=== PATIENT | male | born 1950 | race Caucasian/White ===

== ENCOUNTER → 2020-10-18 08:02 | Outpatient (CLI) | payer MEDICARE, SELFPAY ==
--- NOTE | ~2020-10-18 | US_ITS ---
EXAMINATION: US thyroid EXAM DATE: 10/18/2020 08:27 INDICATION: E05.90 - Thyrotoxicosis, unspecified without thyrotoxic crisis or storm . TECHNIQUE: Multiple grayscale and Doppler images of the thyroid were obtained (by a technologist who performed the scan) and subsequently reviewed. Individual nodules and recommendations may be reporte d in accordance with TI-RADS system as designated by the 2017 ACR White Paper TI-RADS committee. The re is no prior study for comparison. FINDINGS: The right thyroid lobe measures 5.3 x 1.6 x 1.8 cm, the left measuring 6.4 x 3.7 x 3.0 cm. Mildly het erogeneous thyroid echogenicity with expected amount of vascularity. In the left thyroid lobe there is a nodule measuring 5.2 x 3.0 x 4.0 cm, solid (2 points), hypoechoic (2 points), wider than tall, smooth well defined margin, without echogenic foci, category TR4 for th is nodule. IMPRESSION: Large left thyroid lobe nodule; recommend ultrasound-guided core biopsy. Reviewed, dictated and finalized at location B. IMPRESSION: Large left thyroid lobe nodule; recommend ultrasound-guided core bi opsy.
== END ==
PROVIDERS: PCP Family Medicine; Visit Provider Family Medicine
DX: E05.90 Thyrotoxicosis, unspecified without thyrotoxic crisis or storm (principal)
CPT/HCPCS: 76536

== ENCOUNTER 2021-01-08 12:33 | Outpatient (CLI) | payer MEDICARE, SELFPAY ==
--- NOTE | ~2021-01-08 | US_ITS ---
EXAMINATION: US FNA w image guidance DATE: 01/08/2021 13:33 INDICATION: Thyrotoxicosis with left thyroid nodule TECHNIQUE: A time-out was performed to verify the patient's name, date of , and procedure to be performed . The procedure and its benefits and risks were discussed with the patient. Risks specifically discus sed included bleeding and infection. The patient understood the risks and agreed to proceed. The neck was prepped and draped in the usual sterile manner. 3 mL 1% lidocaine was used for local anesthesia . 6 passes were made with a 25G needle into the lesion. Appropriate needle location was documented with continuous sonographic guidance. The specimens were passed to the ct scan special procedures technologist in the room. A sterile bandage was applied. There were no immediate complications. FINDINGS: Grayscale ultrasound images demonstrate biopsy needles advanced into a 4.8 cm TI RADS 4 solid left th yroid mass. IMPRESSION: 1. Successful ultrasound-guided fine needle aspiration of a 4.8 cm solid TI RADS 4 left thyroid mass . Reviewed, dictated and finalized at location A. IMPRESSION: 1. Successful ultrasound-guided fine needle aspiration of a 4.8 cm solid TI RA DS 4 left thyroid mass.
== END 2021-01-08 12:34 | disposition home or self-care (01) ==
LOC: ANHIMG 12:37
PROVIDERS: PCP Family Medicine; Visit Provider Internal Medicine Endocrinology, Diabetes & Metabolism
DX: E05.90 Thyrotoxicosis, unspecified without thyrotoxic crisis or storm (principal); E04.1 Nontoxic single thyroid nodule
CPT/HCPCS: 10005; 88173; 88305

== ENCOUNTER 2021-08-21 13:32 | Outpatient (RCR) | payer MEDICARE, SELFPAY ==
[2021-08-21 16:56] LABS: Free T4 Free Thyroxine 1.21 ng/mL (0.78-2.19)
[2021-08-21 17:09] LABS: Thyroid Stimulating Hormone 0.031 uIU/mL (0.465-4.680)
[2021-08-24 06:59] LABS: Triiodothyronine T3 Free 3.6 pg/mL (2.3-4.2)
== END 2021-11-19 23:59 | disposition home or self-care (01) ==
LOC: ANHWCLAB 13:32
PROVIDERS: PCP Family Medicine; Referring Provider Internal Medicine Endocrinology, Diabetes & Metabolism; Visit Provider Internal Medicine Endocrinology, Diabetes & Metabolism
DX: E05.90 Thyrotoxicosis, unspecified without thyrotoxic crisis or storm (principal); E04.1 Nontoxic single thyroid nodule; E04.9 Nontoxic goiter, unspecified
CPT/HCPCS: 36415; 84439; 84443; 84481

== ENCOUNTER 2021-10-01 08:52 | Outpatient (CLI) | payer MEDICARE, SELFPAY ==
[2021-10-01 13:13] LABS: Free T4 Free Thyroxine 0.93 ng/mL (0.78-2.19)
[2021-10-01 13:32] LABS: Thyroid Stimulating Hormone 0.272 uIU/mL (0.465-4.680)
[2021-10-05 07:48] LABS: Triiodothyronine T3 Free 3.2 pg/mL (2.3-4.2)
== END 2021-10-01 08:53 | disposition home or self-care (01) ==
LOC: ANHWCLAB 08:55
PROVIDERS: PCP Family Medicine; Visit Provider Internal Medicine Endocrinology, Diabetes & Metabolism
DX: E05.90 Thyrotoxicosis, unspecified without thyrotoxic crisis or storm (principal); E04.1 Nontoxic single thyroid nodule
CPT/HCPCS: 36415; 84439; 84443; 84481

== ENCOUNTER 2021-11-06 12:28 | Outpatient (CLI) | payer MEDICARE, SELFPAY ==
--- NOTE | ~2021-11-06 | NM_ITS ---
EXAMINATION: NM thyroid scan w uptake DATE: 11/07/2021 13:32 INDICATION: Thyrotoxicosis, unspecified without thyrotoxic crisis. COMPARISON: Thyroid ultrasound 10/18/2020 TECHNIQUE: 0.371 mCi I-123 was administered orally. Scintigraphic images of the thyroid gland were o btained at 24 hours. Thyroid uptake was calculated by the technologist. FINDINGS: The thyroid uptake is 41% (normal 10-30%), with the right lobe measuring 9% uptake and the left 32%. The left thyroid nodule seen by ultrasound demonstrates similar activity per volume compared to the r est of the thyroid. IMPRESSION: 1. Increased 24 hour iodine uptake, consistent with Graves' disease. 2. Iso-active left thyroid nodule. Biopsy on 01/08/2021 was benign. Reviewed, dictated and finalized at location A.
== END 2021-11-06 12:29 | disposition home or self-care (01) ==
PROVIDERS: PCP Family Medicine; Visit Provider Internal Medicine Endocrinology, Diabetes & Metabolism
DX: E05.90 Thyrotoxicosis, unspecified without thyrotoxic crisis or storm (principal); E04.1 Nontoxic single thyroid nodule
CPT/HCPCS: 78014; A9516

== ENCOUNTER 2021-11-13 09:09 | Outpatient (CLI) | payer MEDICARE, SELFPAY ==
[2021-11-13 17:00] LABS: Free T4 Free Thyroxine 1.11 ng/mL (0.78-2.19)
[2021-11-13 17:15] LABS: Thyroid Stimulating Hormone 0.336 uIU/mL (0.465-4.680)
[2021-11-16 04:27] LABS: Triiodothyronine T3 Free 3.4 pg/mL (2.3-4.2)
== END 2021-11-13 09:10 | disposition home or self-care (01) ==
LOC: ANHWCLAB 09:15
PROVIDERS: PCP Family Medicine; Referring Provider Internal Medicine Endocrinology, Diabetes & Metabolism; Visit Provider Internal Medicine Endocrinology, Diabetes & Metabolism
DX: E04.9 Nontoxic goiter, unspecified (principal); E05.90 Thyrotoxicosis, unspecified without thyrotoxic crisis or storm; E78.00 Pure hypercholesterolemia, unspecified; I11.9 Hypertensive heart disease without heart failure; I25.10 Atherosclerotic heart disease of native coronary artery without angina pectoris; R73.01 Impaired fasting glucose
CPT/HCPCS: 36415; 84439; 84443; 84481

== ENCOUNTER 2021-12-13 09:13 | Outpatient (CLI) | payer MEDICARE, SELFPAY ==
[2021-12-13 10:33] LABS: Free T4 Free Thyroxine 0.95 ng/mL (0.78-2.19)
[2021-12-13 10:34] LABS: Thyroid Stimulating Hormone 0.821 uIU/mL (0.465-4.680)
[2021-12-17 20:53] LABS: Triiodothyronine T3 Free 3.2 pg/mL (2.3-4.2)
== END 2021-12-13 09:14 | disposition home or self-care (01) ==
LOC: ANHLAB 09:17
PROVIDERS: PCP Family Medicine; Visit Provider Internal Medicine Endocrinology, Diabetes & Metabolism
DX: E05.90 Thyrotoxicosis, unspecified without thyrotoxic crisis or storm (principal); E04.9 Nontoxic goiter, unspecified
CPT/HCPCS: 36415; 84439; 84443; 84481

== ENCOUNTER 2022-03-27 09:14 | Outpatient (CLI) | payer MEDICARE, SELFPAY ==
[2022-03-27 10:12] LABS: Alanine Aminotransferase 30 U/L (6-50); Albumin Level 4.2 g/dL (3.5-5.1); Alkaline Phosphatase 83 U/L (38-126); Anion Gap 8 mmol/L (8-16); Aspartate Amino Transferase 33 U/L (17-59); Bilirubin,Total 0.8 mg/dL (0.2-1.3); Blood Urea Nitrogen 14 mg/dL (9-20); Calcium 8.7 mg/dL (8.4-10.2); Carbon Dioxide 28 mmol/L (22-30); Chloride 103 mmol/L (98-107); Estimated Glomerular Filt Rate > 60; Glucose 100 mg/dL (65-110); Potassium 4.3 mmol/L (3.4-5.0); Sodium 139 mmol/L (137-145)
[2022-03-27 11:00] LABS: Free T4 Free Thyroxine 1.12 ng/mL (0.78-2.19)
== END 2022-03-27 09:15 | disposition home or self-care (01) ==
PROVIDERS: PCP Family Medicine; Referring Provider Internal Medicine Endocrinology, Diabetes & Metabolism; Visit Provider Family Medicine
DX: I11.9 Hypertensive heart disease without heart failure (principal); E05.90 Thyrotoxicosis, unspecified without thyrotoxic crisis or storm
CPT/HCPCS: 36415; 80053; 84439; 84443

== ENCOUNTER 2022-05-27 08:55 | Outpatient (CLI) | payer MEDICARE, SELFPAY ==
[2022-05-27 11:10] LABS: Free T4 Free Thyroxine 1.15 ng/mL (0.78-2.19)
== END 2022-05-27 08:56 | disposition home or self-care (01) ==
PROVIDERS: PCP Family Medicine; Visit Provider Internal Medicine Endocrinology, Diabetes & Metabolism
DX: E05.90 Thyrotoxicosis, unspecified without thyrotoxic crisis or storm (principal)
CPT/HCPCS: 36415; 84439; 84443

== ENCOUNTER 2022-08-13 08:54 | Outpatient (CLI) | payer MEDICARE, SELFPAY ==
[2022-08-13 09:26] LABS: Hematocrit 42.4 % (42.0-52.0); Hemoglobin 14.2 g/dL (14.0-18.0); Mean Corpuscular HGB Conc 33.5 g/dl (32-36); Mean Corpuscular Hemoglobin 30.4 pg (26-34); Mean Corpuscular Volume 90.8 fl (80-100); Mean Platelet Volume 10.1 fl (7.4-10.4); Platelet Count Result 192 k/mm3 (150-375); Red Blood Count 4.67 M/mm3 (4.6-6.20); Red Cell Distribution Width 12.5 % (11.5-14.5); White Blood Count 6.1 K/mm3 (4.5-10.0)
[2022-08-13 09:29] LABS: Appearance Urine Cloudy (Clear); Bacteria Urine None Seen /hpf; Bilirubin Urine Negative (Negative); Blood Urine Negative (Negative); Color Urine Dark Yellow (Yellow); Glucose Urine UA Negative (Negative); Ketones Urine Trace mg/dL (Negative); Leukocyte Esterase Ur Negative LEU/UL (NEGATIVE); Nitrate Urine Negative (Negative); Non Pathogenic Casts 0-2; Protein Urine Negative (Negative); RBC Urine 0-2 /hpf (0-2); Specific Grav Ur 1.023 (1.001-1.035); Squamous Epithelial Cell Urine None seen /hpf (Few); Urobilinogen Urine 0.2 mg/dL (<2.0); WBC Urine 0-5 /hpf (0-3)
[2022-08-13 09:37] LABS: Alanine Aminotransferase 24 U/L (6-50); Albumin Level 4.2 g/dL (3.5-5.1); Alkaline Phosphatase 73 U/L (38-126); Anion Gap 5 mmol/L (8-16); Aspartate Amino Transferase 31 U/L (17-59); Bilirubin,Total 0.8 mg/dL (0.2-1.3); Blood Urea Nitrogen 16 mg/dL (9-20); Calcium 8.6 mg/dL (8.4-10.2); Carbon Dioxide 29 mmol/L (22-30); Chloride 106 mmol/L (98-107); Cholesterol 136 mg/dL (0-200); Estimated Glomerular Filt Rate > 60; Glucose 104 mg/dL (65-110); HDL Direct 67 mg/dL; Potassium 4.5 mmol/L (3.4-5.0); Sodium 140 mmol/L (137-145); Triglycerides 115 mg/dL (<150)
[2022-08-13 09:49] LABS: LDL Cholesterol Direct 59 mg/dL
[2022-08-13 10:05] LABS: Add Urine Microscopic? YES
[2022-08-13 10:07] LABS: Prostate Specific Antigen 0.9 ng/mL (< OR = 4.0)
[2022-08-13 10:21] LABS: Hemoglobin A1C 5.3 % (<5.7)
[2022-08-13 10:45] LABS: Hepatitis C Virus Antibody Negative (Negative)
== END 2022-08-13 08:55 | disposition home or self-care (01) ==
PROVIDERS: PCP Family Medicine; Visit Provider Family Medicine
DX: R35.1 Nocturia (principal); E78.00 Pure hypercholesterolemia, unspecified; R73.01 Impaired fasting glucose; I25.10 Atherosclerotic heart disease of native coronary artery without angina pectoris; Z11.59 Encounter for screening for other viral diseases
CPT/HCPCS: 36415; 80053; 80061; 81001; 83036; 84153; 84443; 85027; 86803

== ENCOUNTER 2022-12-29 08:36 | Outpatient (CLI) | payer MEDICARE, SELFPAY ==
--- NOTE | ~2022-12-29 | US_ITS ---
EXAMINATION: US thyroid DATE: 12/29/2022 09:27 INDICATION: Nontoxic single thyroid nodule. TECHNIQUE: Multiple ultrasound images of the thyroid were obtained. COMPARISON: Ultrasound 10/18/2020, 01/08/2021 FINDINGS: The right thyroid lobe measures 4.3 x 1.4 x 1.8 cm. The left thyroid lobe measures 5.5 x 4.4 x 3.1 c m. In the left thyroid lobe, there is a 4.9 cm predominantly solid, hypoechoic, wider than tall nodu le with ill-defined margin without echogenic foci (TI-RADS TR4). IMPRESSION: 1. Left thyroid nodule, stable from 01/08/2021 when biopsy was benign. Reviewed, dictated and finalized at location A.
== END 2022-12-29 08:37 | disposition home or self-care (01) ==
PROVIDERS: PCP Family Medicine; Visit Provider Internal Medicine Endocrinology, Diabetes & Metabolism
DX: E04.1 Nontoxic single thyroid nodule (principal)
CPT/HCPCS: 76536

== ENCOUNTER 2023-01-15 10:10 | Outpatient (CLI) | payer MEDICARE, SELFPAY ==
[2023-01-15 13:00] LABS: Free T4 Free Thyroxine 1.07 ng/mL (0.78-2.19)
== END 2023-01-15 10:11 | disposition home or self-care (01) ==
LOC: ANHWCLAB 10:11
PROVIDERS: PCP Family Medicine; Visit Provider Internal Medicine Endocrinology, Diabetes & Metabolism
DX: E05.90 Thyrotoxicosis, unspecified without thyrotoxic crisis or storm (principal)
CPT/HCPCS: 36415; 84439; 84443

== ENCOUNTER 2023-02-27 10:05 | Outpatient (CLI) | payer MEDICARE, SELFPAY ==
[2023-02-27 10:53] LABS: Alanine Aminotransferase 31 U/L (6-50); Albumin Level 4.1 g/dL (3.5-5.1); Alkaline Phosphatase 77 U/L (38-126); Anion Gap 5 mmol/L (8-16); Aspartate Amino Transferase 36 U/L (17-59); Blood Urea Nitrogen 16 mg/dL (9-20); Calcium 8.7 mg/dL (8.4-10.2); Carbon Dioxide 29 mmol/L (22-30); Chloride 102 mmol/L (98-107); Estimated Glomerular Filt Rate > 60; Glucose 104 mg/dL (65-110); Potassium 4.4 mmol/L (3.4-5.0); Sodium 136 mmol/L (137-145)
[2023-02-27 12:02] LABS: Hemoglobin A1C 5.3 % (<5.7)
== END 2023-02-27 10:06 | disposition home or self-care (01) ==
PROVIDERS: PCP Family Medicine; Visit Provider Family Medicine
DX: R73.01 Impaired fasting glucose (principal); I11.9 Hypertensive heart disease without heart failure
CPT/HCPCS: 36415; 80053; 83036

== ENCOUNTER 2023-08-19 09:54 | Outpatient (CLI) | payer MEDICARE, SELFPAY ==
[2023-08-19 09:49] LABS: Appearance Urine Clear (Clear); Bilirubin Urine Negative (Negative); Blood Urine Negative (Negative); Color Urine Dark Yellow (Yellow); Glucose Urine UA Negative (Negative); Ketones Urine Negative (Negative); Leukocyte Esterase Ur Negative LEU/UL (NEGATIVE); Nitrate Urine Negative (Negative); Protein Urine Negative (Negative); Specific Grav Ur 1.021 (1.001-1.035); Urobilinogen Urine 0.2 mg/dL (<2.0)
[2023-08-19 10:03] LABS: Add Urine Microscopic? NO
[2023-08-19 10:09] LABS: Hematocrit 43.5 % (42.0-52.0); Hemoglobin 14.4 g/dL (14.0-18.0); Mean Corpuscular HGB Conc 33.1 g/dl (32-36); Mean Corpuscular Hemoglobin 30.7 pg (26-34); Mean Corpuscular Volume 92.8 fl (80-100); Mean Platelet Volume 10.4 fl (7.4-10.4); Platelet Count Result 204 k/mm3 (150-375); Red Blood Count 4.69 M/mm3 (4.6-6.20); Red Cell Distribution Width 12.9 % (11.5-14.5); White Blood Count 5.8 K/mm3 (4.5-10.0)
[2023-08-19 10:35] LABS: Alanine Aminotransferase 32 U/L (6-50); Albumin Level 4.2 g/dL (3.5-5.1); Alkaline Phosphatase 72 U/L (38-126); Anion Gap 7 mmol/L (8-16); Aspartate Amino Transferase 35 U/L (17-59); Blood Urea Nitrogen 15 mg/dL (9-20); Calcium 8.9 mg/dL (8.4-10.2); Carbon Dioxide 26 mmol/L (22-30); Chloride 105 mmol/L (98-107); Cholesterol 145 mg/dL (0-200); Estimated Glomerular Filt Rate > 60; Glucose 101 mg/dL (65-110); HDL Direct 63 mg/dL; Potassium 4.3 mmol/L (3.4-5.0); Sodium 138 mmol/L (137-145); Triglycerides 117 mg/dL (<150)
[2023-08-19 10:46] LABS: LDL Cholesterol Direct 70 mg/dL
[2023-08-19 10:50] LABS: Hemoglobin A1C 5.6 % (<5.7)
[2023-08-19 11:04] LABS: Prostate Specific Antigen 0.9 ng/mL (< OR = 4.0)
== END 2023-08-19 09:55 | disposition home or self-care (01) ==
PROVIDERS: PCP Family Medicine; Visit Provider Family Medicine
DX: E78.00 Pure hypercholesterolemia, unspecified (principal); R35.1 Nocturia; R73.01 Impaired fasting glucose; I11.9 Hypertensive heart disease without heart failure; Z12.5 Encounter for screening for malignant neoplasm of prostate
CPT/HCPCS: 36415; 80053; 80061; 81003; 83036; 84153; 84443; 85027

== ENCOUNTER 2023-11-30 01:41 | Day surgery (SDC) | payer MEDICARE, SELFPAY ==
[2023-11-27 16:42] VITALS: BMI 27.4
[2023-11-30] VITALS (12 sets, daily range): BP systolic 96–124; BP diastolic 66–79; PULSE 53–71; RESP 12–16; TEMP 36.1–36.4; O2SAT 98–100; BMI 26.4
[2023-11-30 07:44] LABS: Basophils Absolute Auto 0.1 K/mm3 (0.0-0.1); Basophils Percent Auto 1.1 % (0.2-1.2); Eosinophils Absolute Auto 0.1 K/mm3 (0-0.3); Eosinophils Percent Auto 1.8 % (0-4.4); Hematocrit 41.2 % (42.0-52.0); Immature Granulocyte Absolute 0.01 K/mm3 (0.00-0.031); Immature Granulocyte Percent A 0.2 % (0-0.5); Lymphocytes Absolute Auto 1.53 K/mm3 (0.9-3.2); Lymphocytes Percent Auto 27.2 % (18.3-44.2); Mean Corpuscular Hemoglobin 31.5 pg (26-34); Mean Corpuscular Volume 92.6 fl (80-100); Mean Platelet Volume 10.2 fl (7.4-10.4); Monocytes Absolute Auto 0.6 K/mm3 (0.1-0.6); Neutrophils Absolute Auto 3.3 K/mm3 (1.3-6.7); Neutrophils Percent Auto 58.7 % (45.5-73.1); Platelet Count Result 195 k/mm3 (150-375); Red Blood Count 4.45 M/mm3 (4.6-6.20); Red Cell Distribution Width 12.6 % (11.5-14.5); White Blood Count 5.6 K/mm3 (4.5-10.0)
[2023-11-30 07:52] LABS: Anion Gap 7 mmol/L (4-12); Blood Urea Nitrogen 20 mg/dL (9-20); Calcium 8.9 mg/dL (8.4-10.2); Carbon Dioxide 27 mmol/L (22-30); Chloride 105 mmol/L (98-107); Estimated CRCL calculation 55 ml/min; Estimated Glomerular Filt Rate > 60; Glucose 96 mg/dL (65-110); Potassium 4.1 mmol/L (3.4-5.0); Sodium 139 mmol/L (137-145)
[2023-11-30 07:54] LABS: Prothrombin Time 13.9 Seconds (11.1-14.7)
[2023-11-30] MEDS: SODIUM CHLORIDE 0.9% IV 500 ML 100 ML IV CONT (08:20)
--- NOTE | 2023-11-30 08:50 | WPDMODSED ---
Moderate Sedation Note-Pt Data Patient Data Diagnosis: Coronary artery disease with remote history of PCI abnormal nuclear stress test done surveillance follow-up Present Complaint: no complaints Procedure to be performed/Plan: left heart catheterization Allergies Allergy/AdvReac Type Severity Reaction Status Date / Time shellfish derived Allergy Unknown Rash Verified 11/27/23 16:23 Home Medications Medication Instructions Recorded Confirmed Type atorvastatin 80 mg tablet 80 mg PO DAILY 08/07/20 11/30/23 History clopidogrel 75 mg tablet (Plavix) 75 mg PO DAILY 08/07/20 11/27/23 History esomeprazole magnesium 20 mg 20 mg PO DAILY 08/07/20 11/27/23 History capsule,delayed release (Nexium) isosorbide mononitrate 30 mg 30 mg PO DAILY 08/07/20 11/27/23 History tablet,extended release 24 hr lisinopril 2.5 mg tablet 2.5 mg PO DAILY 08/07/20 11/27/23 History metoprolol tartrate 25 mg tablet 25 mg PO DAILY 08/07/20 11/27/23 History multivitamin 1 tablet PO DAILY 08/07/20 11/27/23 History nitroglycerin 0.4 mg sublingual 0.4 mg sublingual Q5M PRN Chest 08/07/20 11/27/23 History tablet (Nitrostat) Pain rivaroxaban 20 mg tablet (Xarelto) 20 mg PO DAILY 08/07/20 11/27/23 History ezetimibe 10 mg tablet (Zetia) 10 mg PO DAILY 08/12/21 11/27/23 History methimazole 5 mg tablet See Rx Instructions .Route 06/29/23 11/27/23 Rx .COMPLEX #100 tabs Current Medications: Active Medications Sodium Chloride (Normal Saline Iv) 500 mls @ 100 mls/hr IV CONT .Q5H ONE Stop: 11/30/23 11:59 Sedation/Anesthesia: No previous sedation/anesthesia problems (including family history). [facility] Past Medical History Medical History Paroxysmal A-fib Surgical History Surgical History History of left cataract extraction History of right cataract surgery Family History Family History Mother Family history of diabetes mellitus in first degree relative Hypertension Family history of coronary artery disease Father Patient's father is Family history of coronary artery disease Sibling Patient's sister is Family history of lymphoma Family history of coronary artery disease Social History Social History Smoking status: Never smoker Second hand tobacco smoke exposure: No Alcohol intake: current Drinks per week: 6 Substance use: never Substance use type: does not use Living arrangements: with family Occupation/Education: retired Gender identity (if verbalized by the patient): Male Sexual Orientation (if Verbalized by the Patient): Straight or Heterosexual Spiritual care concerns: No Mod Sed Physical Exam Physical Exam Pre Procedural Exam: Normal: Appearance, Throat, Airway, Lungs, Heart Size, Heart Rate, Heart Rhythm, Neuro Exam and Extremities Hours since solid foods: 12 Hours since liquid intake: 12 Mallampati Classification: class II Internal Medicine - PN: Obj Da Vital Signs Vital Signs: Vital Signs - 24 hr 11/30/23 07:25 Temperature 36.4 C Pulse Rate 63 Respiratory Rate 15 Blood Pressure 124/79 Pulse Oximetry 98 Oxygen Delivery Room Air Meds/Results Medications: Active Medications Generic Name Dose Route Start Last Admin Trade Name Freq PRN Reason Stop Dose Admin Sodium Chloride 500 mls @ 100 mls/hr 11/30/23 07:00 Normal Saline Iv IV CONT 11/30/23 11:59 .Q5H ONE Labs 11/30/23 07:34 11/30/23 07:34 Labs: Laboratory Results - last 24 hr 11/30/23 07:34 WBC 5.6 RBC 4.45 L Hgb 14.0 Hct 41.2 L MCV 92.6 MCH 31.5 MCHC 34.0 RDW 12.6 Plt Count 195 MPV 10.2 Immature Gran % (Auto) 0.2 Neut % (Auto) 58.7 Lymph % (Auto) 27.2 [place] % (Auto) 11.0 H Eos % (Auto) 1.8 Ba
--- NOTE | 2023-11-30 08:51 | PM.IMHP ---
H&P: HPI History of Present Illness Date/Time: 11/30/23 08:51 Chief Complaint: outpatient angiography to investigate abnormal stress test Narrative: this is a 68 man history of coronary disease and previous PCI to the left anterior descending as well as to the right coronary artery in the remote past. His most recent intervention was to the proximal and distal RCA in 2014. His risk factors include dyslipidemia and hypertension. He is not symptomatic of angina at this time. A routine surveillance nuclear stress test that was done in the office recently was interpreted as showing evidence of anterior ischemia prompting recommendation for follow-up angiography. The patient's mid to distal LAD is known to be somewhat diffusely diseased and small in caliber. Review of Systems Constitutional: Constitutional: Reports no additional constitutional complaints Eyes: Eyes: Reports no additional eye complaints ENT: Reports system reviewed and no additional complaints, except as documented Cardiovascular: Cardiovascular: Reports no additional cardiovascular complaints Respiratory: Respiratory: Reports no additional respiratory complaints Gastrointestinal: Gastrointestinal: Reports no additional gastrointestinal complaints Musculoskeletal: Musculoskeletal: Reports no additional musculoskeletal complaints Integumentary/Breasts: Skin/Breast: Reports system reviewed and no additional complaints, except as docu Neurologic: Reports system reviewed and no additional complaints, except as documented [facility] Past Medical History Medical History Paroxysmal A-fib Surgical History Surgical History History of left cataract extraction History of right cataract surgery Family History Family History Mother Family history of diabetes mellitus in first degree relative Hypertension Family history of coronary artery disease Father Patient's father is Family history of coronary artery disease Sibling Patient's sister is Family history of lymphoma Family history of coronary artery disease Social History Social History Smoking status: Never smoker Second hand tobacco smoke exposure: No Alcohol intake: current Drinks per week: 6 Substance use: never Substance use type: does not use Living arrangements: with family Occupation/Education: retired Gender identity (if verbalized by the patient): Male Sexual Orientation (if Verbalized by the Patient): Straight or Heterosexual Spiritual care concerns: No Meds Home Medications and Allergies Home Medications Medication Instructions Recorded Confirmed Type atorvastatin 80 mg tablet 80 mg PO DAILY 08/07/20 11/30/23 History clopidogrel 75 mg tablet (Plavix) 75 mg PO DAILY 08/07/20 11/27/23 History esomeprazole magnesium 20 mg 20 mg PO DAILY 08/07/20 11/27/23 History capsule,delayed release (Nexium) isosorbide mononitrate 30 mg 30 mg PO DAILY 08/07/20 11/27/23 History tablet,extended release 24 hr lisinopril 2.5 mg tablet 2.5 mg PO DAILY 08/07/20 11/27/23 History metoprolol tartrate 25 mg tablet 25 mg PO DAILY 08/07/20 11/27/23 History multivitamin 1 tablet PO DAILY 08/07/20 11/27/23 History nitroglycerin 0.4 mg sublingual 0.4 mg sublingual Q5M PRN Chest 08/07/20 11/27/23 History tablet (Nitrostat) Pain rivaroxaban 20 mg tablet (Xarelto) 20 mg PO DAILY 08/07/20 11/27/23 History ezetimibe 10 mg tablet (Zetia) 10 mg PO DAILY 08/12/21 11/27/23 History methimazole 5 mg tablet See Rx Instructions .Route 06/29/23 11/27/23 Rx .COMPLEX #100 tabs Allergies Allergy/AdvReac Type Severity Reaction Status Date / Time shellfish derived Allergy Unknown Rash Verified 11/27/23 16:23 Vital Signs Vital Signs - 24 hr
--- NOTE | 2023-11-30 09:22 | WPDCARDPROC ---
Cardiac Cath Procedure Note Date of procedure:: 11/30/23 Performing physician:: Fernando Celaya MD Indication:: abnormal nuclear stress test Brief clinical history:: this is a 73-year-old man with coronary disease previous PCI to the LAD as well as to the proximal and mid RCA. He is currently asymptomatic of angina. In surveillance follow-up a nuclear stress test was found show evidence of anterior ischemia. In this setting a follow-up angiogram has been recommended Procedure Procedure performed:: left ventriculography coronary angiography Sedation/Medication given:: fentanyl 50 mg Versed 2 mg case start time 8:59 a.m. case end time 9:21 a.m. sedation provided by Aline Tobias RN, trained observer Access site:: right femoral artery Estimated blood loss:: 25 cc Procedure note:: patient was brought to the cardiac catheterization lab in the postabsorptive state where the right femoral triangle was prepared and draped in the normal fashion. Anesthesia was provided with 1% lidocaine infiltrated locally. Using a modified Seldinger technique the femoral artery was punctured and a 5 [place] vascular sheath was placed. After this left heart catheterization was carried out. I used a 5 [place] angled pigtail catheter to measure left-sided hemodynamics and to inject the left ventriculogram in the DIAZ projection. After this I used standard 5 [place] FL4 catheter to engage and inject the left coronary artery. The right coronary was engaged and injected using standard 5 [place] JR4 catheter. The cine angiograms were then reviewed and the case was terminated an angiogram was done of the femoral artery through the sheath after which I elected to have the sheath removed with direct manual compression in the cardiac catheterization lab as the puncture was too low for an Angio-Seal device. Patient was stable with no apparent procedural complications and no evidence of groin hematoma upon completion of the procedure. Findings:: Hemodynamics: Central pressure is 116/60 left ventricle 116/0 end-diastolic pressure 12 gradient on pullback across the aortic valve. Left ventricle: The left ventricle is normal in size. The mid anterior wall is mildly hypodynamic the remainder of the ventricle contracts well the global ejection fraction is 55-60% by visual estimation. The left main coronary artery is large in caliber. There is significant distal left main stenosis of about 80%. This involves a trifurcation of the distal left main, proximal LAD, proximal circumflex and OM branch which takes off is a ramus intermedius. The left anterior descending is a medium caliber artery which is mildly diffusely diseased down to the apex. There is a stent in the 1-1/3st of the LAD which is patent there are no flow-limiting lesions in the LAD distal to the ostial disease described above. Circumflex is a small caliber vessel. As stated above the 1st OM essentially takes off is a ramus intermedius branch. There is at least 80% stenosis at the origin of the ramus branch. The AV groove trunk portion of the circumflex also has ostial 70-80% stenosis extending from the distal left main plaque described above. The AV groove portion of the circumflex is rather small, the OM branch is moderate size the right coronary artery is medium in caliber and dominant to the posterior circulation. There is mild diffuse luminal irregularity with atherosclerosis throughout the right coronary artery. A visible stent material in the proximal RCA remains nicely patent. The distal RCA which was balloon dilated 9 years ago has mild plaque but no flow-limiting disease. There to appears to be ostial stenosis of the RPDA which is eccentric and probably about 70%. The RPL branches are free of significant stenosis. Conclusion:: 1. Right coronary dominant circulation with significant progression of coronary disease involving approximately 80% distal stenosis
== END 2023-11-30 15:10 | disposition home or self-care (01) ==
PROVIDERS: PCP Family Medicine; Visit Provider Specialist
PROC: 4A023N7 Measurement of Cardiac Sampling and Pressure, Left Heart, Percutaneous Approach (ICD-10-PCS; CPT 93452; principal; 2023-11-30 08:30)
DX: I25.10 Atherosclerotic heart disease of native coronary artery without angina pectoris (principal); R94.39 Abnormal result of other cardiovascular function study; Z95.5 Presence of coronary angioplasty implant and graft; I48.0 Paroxysmal atrial fibrillation; Z79.02 Long term (current) use of antithrombotics/antiplatelets; Z79.01 Long term (current) use of anticoagulants
CPT/HCPCS: 36415; 80048; 85025; 85610; 93458; C1887; C1894; J1644; J2250; J3010; J7040

== ENCOUNTER 2023-12-28 07:21 | Outpatient (CLI) | payer MEDICARE, SELFPAY ==
--- NOTE | 2023-12-28 | ECHO_ITS ---
Patient Info Name: Emerson Person Age: 73 years : 1950 Gender: Male Ht: 68 in Wt: 180 lbs BSA: 2.00 m2 HR: 63 bpm BP: 117 / 63 mmHg Heart Rhythm: Sinus Rhythm Technical Quality: Fair Exam Date: 12/28/2023 7:44 AM Exam Location: Echo Lab Patient Status: Outpatient Admit Date: 12/28/2023 Staff Ordering Physician: DadaTeto MD Food Technologist: Melida Zimmerman RDCS Attending Provider: Dada, Teto Carlos MD Referring Physician: Dada GALLAGHER; Exam Type: CA echo dop color flow w con Study Info Indications - I25.1 Complete two-dimensional, color flow and Doppler transthoracic echocardiogram is performed with contrast to opacify the left ventricle and to improve the deliniation of the left ventricle endocardial borders. Contrast/Agitated Saline Contrast/Ag. Saline: Definity Amount: 3.00 ml Administered By: Melida Zimmerman RDCS New IV Access: Left Site Condition: IV removed Summary 1. Normal left ventricular size and systolic function with grade 1 diastolic noncompliance. 2. Definity contrast used to improve exam quality. 3. Trivial aortic and mitral valve regurgitation. Left Ventricle Left ventricular chamber dimension is normal. Left ventricular systolic function is normal, estimated at 60-65%. The left ventricular diastolic function is grade I diastolic dysfunction. Right Ventricle Right ventricular chamber dimension is normal. Left Atria Left atrial chamber dimension is moderately enlarged. Right Atria Right atrial chamber dimension is normal. Aortic Valve The aortic valve is normal. There is trace aortic valve regurgitation. Pulmonic Valve The pulmonic valve is normal. Mitral Valve The mitral valve has normal leaflets. There is trace mitral valve regurgitation. Tricuspid Valve The tricuspid valve leaflets are normal. Pericardium/Pleural The pericardium appears normal. Aorta The aortic root size at the sinus of Valsalva is normal. Left Ventricular Outflow Tract Name Value Normal LVOT 2D LVOT Diameter 1.96 cm LVOT Doppler LVOT Peak Gradient 5 mmHg LVOT Mean Gradient 2 mmHg LVOT VTI 23.43 cm LVOT VTI/AV VTI Ratio 0.91 LVOT Stroke Volume 70.41 ml LVOT CO 3.85 l/min LVOT CI 1.93 L/min/m2 Pulmonic Valve Name Value Normal RVOT Doppler RVOT Peak Gradient 1 mmHg PV Doppler PV Peak Gradient 2 mmHg Mitral Valve Name Value Normal MV Doppler
[2023-12-28] MEDS: PERFLUTREN LIPID MICROSPHERES 1.5 ML VIAL DILUTED TO 10 ML TOTAL VOLUME IV PUSH (08:20)
--- NOTE | 2023-12-28 12:02 | IVDEFINITY ---
Prior to administration of IV Definity the patient was educated on the risks and benefits of the imaging enhancing agent including potential adverse side effects. The patient verbalized understanding. Allergies were verified. No exclusion criteria were identified and at least one of the following inclusion criteria were met: 1) physician request, 2) patient technically difficult to image (per the [place] [employer] guidelines of two or more segments not discernable within the apical view), or 3) questionable left ventricular function. ?
== END 2023-12-28 07:22 | disposition home or self-care (01) ==
PROVIDERS: PCP Family Medicine; Visit Provider Thoracic Surgery (Cardiothoracic Vascular Surgery)
DX: I25.118 Atherosclerotic heart disease of native coronary artery with other forms of angina pectoris (principal)
CPT/HCPCS: C8929; Q9957

== ENCOUNTER 2024-02-24 09:40 | Outpatient (CLI) | payer MEDICARE, SELFPAY ==
--- NOTE | ~2024-02-24 | US_ITS ---
EXAMINATION: US venous doppler [facility] DATE: 02/24/2024 10:14 INDICATION: Left lower limb pain TECHNIQUE: Grayscale ultrasound images without and with compression and Doppler ultrasound images of the left lower extremity veins were obtained. COMPARISON: None. FINDINGS: The visualized portions of left common femoral vein, profunda (deep) femoral vein, femoral vein, popl iteal vein, peroneal veins, posterior tibial veins, gastrocnemius vein and greater saphenous vein out flow are patent. IMPRESSION: 1. No deep venous thrombosis in the left lower limb. Reviewed, dictated and finalized at location B.
== END 2024-02-24 09:41 | disposition home or self-care (01) ==
LOC: ANHIMG 09:43
PROVIDERS: PCP Family Medicine; Visit Provider Family Medicine
DX: M79.662 Pain in left lower leg (principal); I82.409 Acute embolism and thrombosis of unspecified deep veins of unspecified lower extremity
CPT/HCPCS: 93971

== ENCOUNTER 2024-02-26 09:35 | Emergency (ER) | payer MEDICARE, SELFPAY ==
[2024-02-26 09:38] VITALS: BP 139/62; PULSE 71; RESP 16; TEMP 36.8; O2SAT 100
[2024-02-26 10:13] VITALS: BP 135/86; PULSE 66; RESP 18; TEMP 36.9; O2SAT 99
--- NOTE | 2024-02-26 10:43 | ED.EXTPRO ---
HPI - Extremity Problem General Chief complaint: Extremity Problem,Nontraumatic Stated complaint: left calf pain and swelling Time Seen by Provider: 02/26/24 10:09 Source: patient Mode of arrival: ambulatory Limitations: no limitations History of Present Illness HPI Narrative: Patient is a 73-year-old male who presents the ED with report of left lower extremity pain and swelling. Patient reports he has had increased pain and swelling to his left lower leg over the last few days. He was seen by his primary care doctor and had a negative venous Doppler ultrasound of the leg 2 days ago. He states swelling and pain has persisted. Reports pain with walking. He has also noticed to areas of what he thought was a bruise to his left lateral calf which have now turned red in color. Denies fever. Denies chest pain or shortness breath. Patient denies previous history of blood clots. He is on Xarelto for hx of AFIB. History of CABG at the beginning of January. Has otherwise been doing very well with this. Related Data Home Medications Medication Instructions Recorded Confirmed atorvastatin 80 mg tablet 80 mg PO DAILY 08/07/20 02/24/24 esomeprazole magnesium 20 mg 20 mg PO DAILY 08/07/20 02/24/24 capsule,delayed release (Nexium) isosorbide mononitrate 30 mg 30 mg PO DAILY 08/07/20 02/24/24 tablet,extended release 24 hr lisinopril 2.5 mg tablet 2.5 mg PO DAILY 08/07/20 02/24/24 metoprolol tartrate 25 mg tablet 25 mg PO DAILY 08/07/20 02/24/24 multivitamin 1 tablet PO DAILY 08/07/20 02/24/24 nitroglycerin 0.4 mg sublingual 0.4 mg sublingual Q5M PRN Chest 08/07/20 02/24/24 tablet (Nitrostat) Pain rivaroxaban 20 mg tablet (Xarelto) 20 mg PO DAILY 08/07/20 02/24/24 ezetimibe 10 mg tablet (Zetia) 10 mg PO DAILY 08/12/21 02/24/24 Allergies Allergy/AdvReac Type Severity Reaction Status Date / Time shellfish derived Allergy Unknown Rash Verified 02/26/24 11:09 Review of Systems Review of Systems: All systems reviewed & are unremarkable except as noted in HPI. All systems reviewed & are unremarkable except as noted in HPI and below PMFSH Past Medical History Medical History Paroxysmal A-fib Surgical History Surgical History History of left cataract extraction History of right cataract surgery Hx of CABG Hx of maze procedure left atrial ablation S/P left atrial appendage ligation Family History Family History Mother Family history of diabetes mellitus in first degree relative Hypertension Family history of coronary artery disease Father Patient's father is Family history of coronary artery disease Sibling Patient's sister is Family history of lymphoma Family history of coronary artery disease Social History Social History Smoking status: Never smoker Second hand tobacco smoke exposure: No Alcohol intake: current Drinks per week: 6 Substance use: never Substance use type: does not use Living arrangements: with family Occupation/Education: retired Gender identity (if verbalized by the patient): Male Sexual Orientation (if Verbalized by the Patient): Straight or Heterosexual Spiritual care concerns: No Exam Narrative: GENERAL: Well appearing, well-nourished, non-toxic, in no acute distress. HEAD: Normocephalic, atraumatic. RESPIRATORY: Airway patent, respirations nonlabored. CARDIOVASCULAR: Regular rate and rhythm without murmurs, rubs, or gallops. Peripheral pulses are strong and easily palpable. MUSCULOSKELETAL: Moves all extremities. No gross deformities. Mild nonpitting edema throughout LLE compared to right, particularly around calf and ankle. Diffuse tenderness to palpation throughout L calf. Two areas of indura
[2024-02-26 10:52] LABS: Basophils Absolute Auto 0.1 K/mm3 (0.0-0.1); Basophils Percent Auto 0.8 % (0.2-1.2); Eosinophils Absolute Auto 0.1 K/mm3 (0-0.3); Eosinophils Percent Auto 1.8 % (0-4.4); Hematocrit 30.2 % (42.0-52.0); Hemoglobin 9.5 g/dL (14.0-18.0); Immature Granulocyte Absolute 0.04 K/mm3 (0.00-0.031); Immature Granulocyte Percent A 0.6 % (0-0.5); Lymphocytes Absolute Auto 1.17 K/mm3 (0.9-3.2); Lymphocytes Percent Auto 16.4 % (18.3-44.2); Mean Corpuscular HGB Conc 31.5 g/dl (32-36); Mean Corpuscular Hemoglobin 29.2 pg (26-34); Mean Corpuscular Volume 92.9 fl (80-100); Mean Platelet Volume 9.6 fl (7.4-10.4); Monocytes Absolute Auto 0.8 K/mm3 (0.1-0.6); Monocytes Percent Auto 11.4 % (2.6-8.5); Neutrophils Absolute Auto 4.9 K/mm3 (1.3-6.7); Platelet Count Result 276 k/mm3 (150-375); Red Blood Count 3.25 M/mm3 (4.6-6.20); Red Cell Distribution Width 13.2 % (11.5-14.5); White Blood Count 7.1 K/mm3 (4.5-10.0)
[2024-02-26 11:08] LABS: Alanine Aminotransferase 19 U/L (6-50); Albumin Level 3.7 g/dL (3.5-5.1); Alkaline Phosphatase 112 U/L (38-126); Anion Gap 8 mmol/L (4-12); Aspartate Amino Transferase 26 U/L (17-59); Bilirubin,Total 0.5 mg/dL (0.2-1.3); Blood Urea Nitrogen 19 mg/dL (9-20); Calcium 8.5 mg/dL (8.4-10.2); Carbon Dioxide 30 mmol/L (22-30); Chloride 99 mmol/L (98-107); Estimated CRCL calculation 44 ml/min; Estimated Glomerular Filt Rate 59; Glucose 104 mg/dL (65-110); Potassium 4.3 mmol/L (3.4-5.0); Sodium 137 mmol/L (137-145)
[2024-02-26 11:16] LABS: NT Pro B Type Natriuretic Pept 541 pg/mL (19.9-100)
== END 2024-02-26 12:25 | disposition home or self-care (01) ==
PROVIDERS: Emergency Provider Physician Assistant; PCP Family Medicine
DX: L03.116 Cellulitis of left lower limb (principal); I48.0 Paroxysmal atrial fibrillation; Z95.1 Presence of aortocoronary bypass graft; Z98.42 Cataract extraction status, left eye; Z98.41 Cataract extraction status, right eye; Z79.01 Long term (current) use of anticoagulants; Z79.82 Long term (current) use of aspirin; Z79.899 Other long term (current) drug therapy
CPT/HCPCS: 36415; 80053; 83880; 85025; 99283

== ENCOUNTER 2024-06-02 11:07 | Outpatient (CLI) | payer MEDICARE, SELFPAY ==
[2024-06-02 13:10] LABS: Free T4 Free Thyroxine 1.12 ng/dL (0.78-2.19)
== END 2024-06-02 11:08 | disposition home or self-care (01) ==
PROVIDERS: PCP Family Medicine; Visit Provider Internal Medicine Endocrinology, Diabetes & Metabolism
DX: E78.00 Pure hypercholesterolemia, unspecified (principal); E05.90 Thyrotoxicosis, unspecified without thyrotoxic crisis or storm
CPT/HCPCS: 36415; 84439; 84443

== ENCOUNTER 2024-06-13 14:29 | Outpatient (CLI) | payer MEDICARE, SELFPAY ==
--- NOTE | ~2024-06-13 | US_ITS ---
EXAMINATION: US thyroid DATE: 06/13/2024 15:09 INDICATION: Follow-up thyroid nodule TECHNIQUE: Multiple ultrasound images of the thyroid were obtained. COMPARISON: 12/29/2022. FINDINGS: The right thyroid lobe measures 3.9 x 1.6 x 1.3 cm. The left thyroid lobe measures 5.2 x 3.8 x 3.8 cm. Interval decrease in size of a left sided thyroid nodule measuring 3.6cm in greatest dimension (sae red with 4.9cm on prior US in 2022) - with prior benign FNA. The isthmus measures 0.61cm in anterior to posterior dimension. There is stable echotexture and echogenicity throughout the remainder of the thyroid gland. No additi onal discrete nodules identified. Increased vascular flow is present. IMPRESSION: Stable hypervascularity and mixed echogenicity of the thyroid gland. Continued follow-up is suggested. Reviewed, dictated and finalized at location A. BITION CARVER
== END 2024-06-13 14:30 | disposition home or self-care (01) ==
PROVIDERS: PCP Family Medicine; Visit Provider Internal Medicine Endocrinology, Diabetes & Metabolism
DX: E04.1 Nontoxic single thyroid nodule (principal)
CPT/HCPCS: 76536

== ENCOUNTER 2024-08-23 08:50 | Outpatient (CLI) | payer MEDICARE, SELFPAY ==
--- OUTSIDE RECORDS SUMMARY | 2024-08-23 09:25 | XMS_ITS | Clinical Summary ---
Author Organization [facility] Address Formerly [facility], later [facility] [place] [address] Care Team Providers Care Internetworking Technician Name Role Phone Caleb Batres MD Primary Care Provider [phone] Allergies Active Allergy Reactions Criticality Noted Date Comments Shellfish-Derived Products Rash Medium Medications clopidogrel 75 MG tablet Take 75 mg by mouth daily. Active rivaroxaban 20 MG Tab tablet Take by mouth daily with supper. Take with food Active isosorbide mononitrate ER 30 MG 24 hr tablet Take 30 mg by mouth daily. Active atorvastatin 80 MG tablet Take 80 mg by mouth nightly at bedtime. Active metoprolol tartrate 25 MG tablet Take 12.5 mg by mouth 2 (two) times daily. Active lisinopril 2.5 MG tablet Take 2.5 mg by mouth daily. Active Multiple Vitamins-Mineral s (CENTRUM SILVER 50+MEN) Tab Take 1 tablet by mouth daily. Active ezetimibe 10 MG tablet Take 10 mg by mouth daily. Active esomeprazole 20 MG capsule Take 20 mg by mouth as needed. Active nitroglycerin 0.[address] 0.4 mg under the tongue every 5 (five) minutes as needed for Chest Pain. Active Active Problems No known active problems Social History Tobacco Use Types Packs/Day Years Used Date Smoking Tobacco: Never Smokeless Tobacco: Never Alcohol Use Standard Drinks/Week Comments Yes 10 (1 standard drink = 0.6 oz pu re alcohol) on weekends Sex and Gender Information Value Date Recorded Sex Assigned at Not on file Legal Sex Male 7:44 PM CDT Gender Identity Male 08/14/2021 8:36 AM HYPERION ANALYST Sexual Orientation Straight 08/14/2021 8: 36 AM HYPERION ANALYST Last Filed Vital Signs Vital Sign Reading Time Taken Comments Blood Pressure 103/65 08/19/2021 10:37 AM HYPERION ANALYST Pulse 75 08/19/2021 8:43 AM HYPERION ANALYST Temperature 35.9 C (96.7 F) 08/19/2021 8:43 AM HYPERION ANALYST Respiratory Rate 16 08/19/2021 8:43 AM HYPERION ANALYST Oxygen Saturation 97% 08/19/2021 10:37 AM HYPERION ANALYST Inhaled Oxygen Concentration - - Weight 81.6 kg (180 lb) 08/09/2021 3:05 PM HYPERION ANALYST Height 172.7 cm (5' 8 ) 08/09/2021 3:05 PM HYPERION ANALYST Body Mass Index 27.37 08/09/2021 3:05 PM HYPERION ANALYST Plan of Treatment Health Maintenance Due Date Last Done Comments Colorectal Cancer Screening Colonoscopy (10 Years) 1948 Hepatitis C 1966 DTaP, Tdap and Td Vaccines ( 1 - Tdap) 11/23/1967 Zoster Vaccines (1 of 2) 1998 Annual Medicare Wellness Visit 2013 RSV Immunization or 60+ Years (1 - 1-dose 75+ series) 11/23/2023 COVID-19 Vaccine ( - 2023-2 5 season) 2024 04/11/2021, 09/04/2020, 07/25/2020 Influenza Adult (#1) 2024 04/10/2020, 03/29/2019 Pneumococcal Vaccine: 65+ Years Completed 04/30/2021, 04/24/2020 Meningococcal B Vaccine Aged Out No l onger eligible based on patient's age to complete this topic Meningococcal Vaccine Aged Out No reina fabrice eligible based on patient's age to complete this topic RSV Immunizations Under 20 Months Aged Out No longer eligible b ased on patient's age to complete this topic Medical Devices Implanted Type Area Glass Mould Cleaner Device Identifier Shelf Expiration Date Model / Serial / Lot Intraocular Lens Implanted:Qty: 1 on 08/19/2021 by Jose Miller MD at [facility] Left: Eye 05/08/2024 [id number] / Insurance [facility] Care Teams Internetworking Technician Relationship Specialty Start Date End Date Caleb Batres MD [address] [place] [address] PCP - General FAMILY PRACTICE 08/19/21
--- OUTSIDE RECORDS SUMMARY | 2024-08-23 09:25 | XMS_ITS | Referral Summary ---
Author Organization [facility] [address] [place] [address] [address] [place] [address] Care Team Providers Care U.S. Commissioner Name Role Phone Caleb Batres MD Primary Care Provider Teto Sutton MD Unavailable [phone] Foreign Rangel MD Unavailable [phone] Encounters Date Type Department Care Team Description 07/12/2024 2:15 PM IT APPLICATIONS MANAGER Office Visit [facility] Surgery [address] [place] [address] Teto Sutton MD S/P CABG x 4 (Primary Dx) 06/22/2024 10:00 AM IT APPLICATIONS MANAGER Office Visit [facility] Medical Group Cardiology [address] [place] [address] Foreign Rnagel MD Coronary artery disease of [place] artery of [place] heart with stable angina pectoris (Primary Dx); Hyperlipidemia LDL goal <70; Chronic anticoagulation; Paroxysmal atrial fibrillation (HCC) from Last 3 Months Allergies Active Allergy Reactions Criticality Noted Date Comments Shellfish Derived Rash Medium 08/09/2021 Shrimp Rash Medium 1998 Medications multivitamin tablet tablet take 1 tablet by oral route every day with food 0 0 10/20/[address] (NexIUM) 20 mg capsule Take 1 capsule (20 mg total) by mouth daily before breakfast Active methIMAzole (TAPAZOLE) 5 mg tablet 11/01/19 22 Active rivaroxaban (Xarelto) 20 mg tablet TAKE 1 TABLET BY MOUTH DAILY 100 tablet 1 12/03/19 24 Active atorvastatin (LIPITOR) 80 mg tabletIndicati ons:Coronary artery disease of [place] artery of [place] heart with stable angina pectoris,Hyper lipidemia LDL goal <70 TAKE 1 TABLET BY MOUTH ONCE DAILY 100 tablet 2 01/04/20 24 Active ezetimibe (ZETIA) 10 mg tablet TAKE 1 TABLET BY MOUTH DAILY 100 tablet 3 03/21/20 24 Active nitroglycerin (NITROSTAT) 0.[address] 1 tablet (0.4 mg total) under the tongue every 5 (five) minutes as needed for chest pain (May repeat every 5min up to 3 tabs in 15 min.) May repeat dose q 5 min, up to 3 doses total 25 tablet 11 03/31/20 24 025 Active metoprolol tartrate (LOPRESSOR) 25 mg immediate release tablet TAKE ONE-HALF TABLET BY MOUTH TWICE DAILY 100 tablet 2 04/18/20 24 Active clopidogreL (PLAVIX) 75 mg tablet TAKE 1 TABLET BY MOUTH DAILY 100 tablet 2 08/01/19 25 Active clopidogreL (PLAVIX) 75 mg tablet Take 1 tablet (75 mg total) by mouth daily 30 tablet 1 02/02/20 24 025 Discontinued Active Problems Problem Noted Date Diagnosed Date Coronary artery disease (CAD) excluded 4 Coronary artery disease of n ative heart with stable angina pectoris 12/08/2023 Chronic anticoagulation 03/01/2020 Paroxysmal atrial fibrillation 03/01/2020 Coronary artery disease of n ative artery of [place] heart with stable angina pectoris 03/05/2017 Hyperlipidemia LDL goal <70 03/05/2017 Family history of ischemic heart disease 017 Gastroesophageal reflux disease without esophagi tis 03/05/2017 Chronic coronary artery disease 10/20/2014 Hyperlipidemia 10/20/2014 Status post angioplasty 10/20/2014 Abnormal result of cardiovascular function study 06/29/2014 Overview (09/19/2016): Abnormal results of cardiovascular function studies Palpitations 06/29/2014 Overview (09/19/2016): Palpitations Social History Tobacco Use Types Packs/Day Years Used Date Smoking Tobacco: Never Smokeless Tobacco: Never Tobacco Cessation:Counseling Given: Not Answered Alcohol Use Standard Drinks/Week Comments Yes 8 (1 standard drink = 0.6 oz pur e alcohol) [facility] Utilities Answer Date Recorded In the past 12 months has th e electric, gas, oil, or water company threatened to shut off services in your home? No 01/29/2024 Social Connection and Isolat ion Panel [NHANES] Answer Date Recorded In a typical week, how many times do you talk on the phone with family, friends, or neighbors? More than three times a week 01/29/2024 How often do you get togethe r with friends or relatives? More than three times a week 01/29/2024 How often do you attend chur ch or scientology services? 1 to 4 times per year 01/29/2024 Do you belong to any clubs o r organizations such as roman catholic groups, unions, fraternal or athletic groups, or school groups? Yes 01/29/2024 How often do you attend meet ings of the clubs or organizations you belong to? More than 4 times per year 01/29/2024 Are you , , di vorced, , never , or living with a partner? 01/29/2024 AUDIT-C Answer Date Recorded Q1: How often do you have a drink containing alc ohol? 2-3 times a week 01/22/2024 Q2: How many drinks containi ng alcohol do you have on a typical day when you are drinking? 1 or 2 01/22/2024 Q3: How often do you have si x or more drinks on one occasion? Never 01/22/2024 Overall Financial Resource Strain (CARDIA) Answe r Date Recorded How hard is it for you to pa y for the very basics like food, housing, medical care, and heating? Not hard at all 01/29/2024 Hunger Vital Sign Answer Date Recorded Within the past 12 months, y ou worried that your food would run out before you got the money to buy more. Never true 01/29/20 24 Within the past 12 months, t he food you bought just didn't last and you didn't have money to get more. Never true 01/29/2024 PRAPARE - Transportation Answer Date Re corded In the past 12 months, has l ack of transportation kept you from medical appointments or from getting medications? No 01/13 In the past 12 months, has l ack of transportation kept you from meetings, work, or from getting things needed for daily living? No 01/29/2024 Housing Stability Vital Sign Answer Vazquez e Recorded In the last 12 months, was t here a time when you were not able to pay the mortgage or rent on time? No 01/29/2024 In the past 12 months, how m any times have you moved where you were living? 0 01/29/2024 At any time in the past 12 m [facility], were you homeless or living in a jail (including now)? No 01/29/2024 Personal Safety Answer Date Recorded Have you ever been in or are you currently in a harmful physical or emotional relationship or is someone making you feel afraid or unsafe? Denies 01/22/2024 Sex and Gender Information Value Date Recorded Sex Assigned at Not on file Legal Sex Male 11:30 AM IT APPLICATIONS MANAGER Gender Identity Male 11/08/2019 7:03 AM CDT Sexual Orientation Straight 11/08/2019 7: 03 AM CDT Last Filed Vital Signs Vital Sign Reading Time Taken Comments Blood Pressure 121/78 07/12/2024 2:28 PM IT APPLICATIONS MANAGER Pulse 82 07/12/2024 2:28 PM IT APPLICATIONS MANAGER Temperature 36.4 C (97.6 F) 02/01/2024 12:31 PM CDT Respiratory Rate 16 07/12/2024 2:28 PM IT APPLICATIONS MANAGER Oxygen Saturation 98% 07/12/2024 2:28 PM IT APPLICATIONS MANAGER Inhaled Oxygen Concentration - - Weight 77.1 kg (170 lb) 07/12/2024 2:28 PM IT APPLICATIONS MANAGER Height 170.2 cm (5' 7 ) 07/12/2024 2:28 PM IT APPLICATIONS MANAGER Body Mass Index 26.63 07/12/2024 2:28 PM IT APPLICATIONS MANAGER Plan of Treatment Not on file Medical Devices Implanted Type Area Bag Press Operator Device Identifier Shelf Expiration Date Model / Serial / Lot Atricure Device Closure Atriclip Nitinol Titanium Polyester 45 D L45mm L6cm Flexible Shaft Plunger Shovel Oiler Left Atrial Appendage Exclusion System [id number] - [id number] Implanted:Qty: 1 on 01/22/2024 by Teto Sutton MD at [facility] Clip N/A: Heart Atricure 06/15/2026 [id number] / [id number] Insurance [facility]IC[facility] Address: [place] [address] MEDICARE [facility] Address: [place] [id number] MEDICARE SOLUTIONS MEDICARE SOLUTIONS Advance Directives For more information, please contact: [phone] * Full Code (Latest Code Status on File) Date Activated Date Inactivated Comments 01/22/2024 3:49 PM 02/01/2024 6:44 PM Care Teams U.S. Commissioner Relationship Specialty Start Date End Date Caleb Batres MD [address] [place] [address] PCP - General 09/12/16 [place] [address] [place] [address] Surgeon Cardiothoracic Surgery 02/01/24 Foreign Rangel MD [address] [place] [address] Consulting Physician Cardiology 02/01/24
--- OUTSIDE RECORDS SUMMARY | 2024-08-23 09:25 | XMS_ITS | Clinical Summary ---
Author Organization [facility] Address [address] [place] [address] Phone Care Team Providers Care Cloth Winder Machine Operator Name Role Phone Caleb Batres MD Primary Care Provider Allergies No known active allergies Medications Acetaminophen 500 MG Capsule Take 2 Capfuls by mouth every 6 hours as needed for Mild or more severe pain. Active Amiodarone HCl 400 MG Tablet Take 1 Tablet by mouth daily. Active atorvastatin (LIPITOR) 80 MG Tablet Take 1 Tablet by mouth daily. Active clopidogrel (PLAVIX) 75 MG Tablet Take 1 Tablet by mouth daily. Active esomeprazole (NexIUM) 20 MG CAPSULE DELAYED RELEASE Take 1 Tablet by mouth daily. BEFORE BREAKFAST Active ezetimibe (ZETIA) 10 MG Tablet Take 1 Tablet by mouth daily. Active furosemide (LASIX) 40 MG Tablet Take 1 Tablet by mouth 2 times daily. Take 1 tablet by mouth 2 times a day for THREE days. Then 1 tablet by mouth daily Active methIMAzole (TAPAZOLE) 5 MG Tablet Take 1 Tablet by mouth 3 times daily as needed for Other (muscle spasms). Active metoprolol tartrate (LOPRESSOR) 25 MG Tablet Take 0.5 Tablets by mouth 2 times daily. Active Multiple Vitamin (MULTIVITAMIN ADULT PO) Take 1 Tablet by mouth daily. WITH FOOD Active potassium chloride (KLOR-CON) 20 MEQ Pack Take 1 Tablet by mouth daily. TAKE WITH LASIX Active Sennosides-Docu sate Sodium (senna-docusate sodium) 8.6-50 MG Tablet Take 1 Tablet by mouth Daily as needed for Other (constipation) . Active rivaroxaban (Xarelto) 20 MG Tablet Take 1 Tablet by mouth daily. Active Social History Tobacco Use Types Packs/Day Years Used Date Smoking Tobacco: Never Assessed Sex and Gender Information Value Date Recorded Sex Assigned at Not on file Legal Sex Male 8:58 AM CDT Gender Identity Not on file Sexual Orientation Not on file Last Filed Vital Signs Vital Sign Reading Time Taken Comments Blood Pressure 104/56 02/17/2024 9:20 AM CDT Pulse 54 02/17/2024 9:20 AM CDT Temperature 36.6 C (97.9 F) 02/17/2024 9:20 AM CDT Respiratory Rate 18 02/17/2024 9:20 AM CDT Oxygen Saturation 93% 02/17/2024 9:20 AM CDT Inhaled Oxygen Concentration - - Weight 78 kg (172 lb) 02/17/2024 9:20 AM CDT Height - - Body Mass Index - - Plan of Treatment Health Maintenance Due Date Last Done Comments Hepatitis C Virus (HCV) Screening 1950 TdaP Immunization 1950 Colonoscopy 1993 Colorectal Cancer Screening 1993 Cologuard 1998 Immunochemical Fecal Occult Blood 1998 Zoster Immunization (1 of 2) 1998 Respiratory Syncytial Virus (RSV) Immunization (Adult) (1 - 1-dose 75+ series) 11/23/2023 Influenza Immunization (#1) 02/14/202408/2022, 03/24/2022, 04/30/2021, Additional history exists SARS-COV-2 Immunization ( season) 2024 03/17/2023, 04/23/2022, 04/11/2021, Additional history exists Pneumococcal Immunization (50+ years) Completed 04/30/2021, 04/24/2020 Hepatitis B Immunization Aged Out No longer eligible based on patient's age to complete this topic Meningococcal Immunization (ACWY) Aged Out No longer eligible based on patient's age to complete this topic Rotavirus Immunization Aged Out No lo nger eligible based on patient's age to complete this topic Insurance MEDICARE C [facility] Advance Directives * Full Code (Latest Code Status on File) Date Activated Date Inactivated Comments 02/03/2024 8:44 AM Care Teams Cloth Winder Machine Operator Relationship Specialty Start Date End Date Caleb Batres MD [address] [place], [place] [id number] PCP - General Family Medicine 01/30/24
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
--- OUTSIDE RECORDS SUMMARY | 2024-08-23 09:25 | XMS_ITS | Encounter Summary ---
Author Organization [facility] Address [address] 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) Social History Tobacco Use Types Packs/Day Years Used Date Smoking Tobacco: Never Assessed Sex and Gender Information Value Date Recorded Sex Assigned at Not on file Legal Sex Male 8:58 AM CDT Gender Identity Not on file Sexual Orientation Not on file documented as of this encounter Plan of Treatment Not on file documented as of this encounter Procedures Procedure Name Priority Date/Time Associated Diagnosis Comments CBC WITH AUTO DIFFERENTIAL Routine 02/06/2024 9:30 AM CDT 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 RBC 3.10(L) 4.40 - 5.80 10(6)/mcL 02/06/2024 10:24 AM CDT [facility] HEMOGLOBIN (HGB) 9.3(L) 13.0 - 16.5 g/dL 02/06/2024 10:24 AM CDT [facility] HEMATOCRIT (HCT) 28.8(L) 38.0 - 50.0 % 02/06/2024 10:24 AM CDT [facility] MCV 92.9 82.0 - 96.0 fL 02/06/2024 10:24 AM CDT [facility] MCH 30.0 26.0 - 32.0 pg 02/06/2024 10:24 AM CDT [facility] MCHC 32.3 31.0 - 36.0 g/dL 02/06/2024 10:24 AM CDT [facility] PLATELET COUNT 538(H) 140 - 440 10(3)/mcL 02/06/2024 10:24 AM CDT [facility] RDW 13.1 11.8 - 15.5 % 02/06/2024 10:24 AM CDT [facility] MPV 9.8 8.0 - 12.6 fL 02/06/2024 10:24 AM CDT [facility] NEUTROPHILS 78.3(H) 40.0 - 68.0 % 02/06/2024 10:24 AM CDT [facility] LYMPHOCYTES 11.5(L) 19.0 - 49.0 % 02/06/2024 10:24 AM CDT [facility] MONOCYTES 8.9 3.0 - 13.0 % 02/06/2024 10:24 AM CDT [facility] EOSINOPHILS 0.7 0.0 - 8.0 % 02/06/2024 10:24 AM CDT [facility] BASOPHILS 0.6 0.0 - 1.0 % 02/06/2024 10:24 AM CDT [facility] ABSOLUTE NEUTROPHILS 9.65(H) 1.40 - 5.30 10(3)/mcL 02/06/2024 10:24 AM CDT [facility] ABSOLUTE LYMPHOCYTES 1.41 0.90 - 3.30 10(3)/mcL 02/06/2024 10:24 AM CDT [facility] ABSOLUTE MONOCYTES 1.09(H) 0.10 - 0.90 10(3)/[facility] 02/06/2024 10:24 AM CDT [facility] ABSOLUTE EOSINOPHIL 0.08 0.00 - 0.50 10(3)/mcL 02/06/2024 10:24 AM CDT [facility] ABSOLUTE BASOPHILS 0.07 0.00 - 0.10 10(3)/[facility] 02/06/2024 10:24 AM CDT [facility] NRBC PER 100 WBC 0 02/06/20 10:24 AM CDT [facility] Blood No Phlebotomy Charged / Unknown 02/06/2024 9:30 AM CDT 02/06/2024 10:20 AM CDT us Brianda Johansen MEDICAID SERVICE COORDINATOR, ULTRASOUND SONOGRAPHER HEMATOLOGY ORDERABL ES Final Result [facility] [place] [address] * (ABNORMAL) CMP (COMPREHENSIVE METABOLIC PANEL) (02/06/2024 9:30 AM CDT) SODIUM 140 136 - 145 mmol/L 02/06/2024 10:43 AM CDT [facility] POTASSIUM 4.2 3.5 - 5.1 mmol/L 02/06/2024 10:43 AM CDT [facility] CHLORIDE 100 98 - 107 mmol/L 02/06/2024 10:43 AM T [facility] CO2, VENOUS 28 22 - 30 mmol/L 02/06/2024 10:43 AM CDT [facility] ANION GAP 16.2 <18.0 mmol/L 02/06/2024 10:43 AM CDT [facility] GLUCOSE 160(H) 70 - 99 mg/dL 02/06/2024 10:43 AM CDT [facility] BUN 19 8 - 26 mg/dL 02/06/2024 10:43 AM [facility] CREATININE, BLOOD 1.36(H) 0.70 - 1.30 mg/dL 02/06/2024 10:43 AM CDT [facility] BUN/CREATININE RATIO 14 12 - 20 ratio 02/06/2024 10:43 AM CDT [facility] TOTAL PROTEIN 6.3 6.3 - 8.2 g/dL 02/06/2024 10:43 AM T [facility] ALBUMIN 3.4(L) 3.5 - 5.0 g/dL 02/06/2024 10:43 AM [facility] A/G RATIO 1.2 1.0 - 2.2 02/06/2024 10:43 AM CDT [facility] CALCIUM 8.7 8.7 - 10.5 mg/dL 02/06/2024 10:43 AM CDT [facility] T BILI 0.6 0.2 - 1.2 mg/dL 02/06/2024 10:43 AM CDT [facility] SGOT (AST) 26 5 - 34 U/L 02/06/2024 10:43 AM CDT [facility] SGPT (ALT) 43 0 - 55 U/L 02/06/2024 10:43 AM CDT [facility] ALKALINE PHOSPHATASE 94 40 - 150 U/L 02/06/2024 10:43 AM CDT [facility] GFR, ESTIMATED 54(L) >=60 02/06/2024 10:43 AM CDT [facility] Comment: Creatinine Clearance is the preferred criteria for selecting drug dose adjustments in renally impaired patients. The GFR is provided as additional pertinent clinical information. GFR is reported in mL/min/1.73 sq m. Calculation based on the Chronic Kidney Disease Epidemiology Collaboration (CKD- EPI) equation refit without adjustment for race. GFR, EST. >60 >=60 024 10:43 AM CDT [facility] GFR, EST. NONAFRICAN 51(L) >=60 02/06/2024 10:43 AM CDT 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
[2024-08-23 09:49] LABS: Hematocrit 37.8 % (42.0-52.0); Hemoglobin 12.3 g/dL (14.0-18.0); Mean Corpuscular HGB Conc 32.5 g/dl (32-36); Mean Corpuscular Hemoglobin 29.6 pg (26-34); Mean Corpuscular Volume 91.1 fl (80-100); Mean Platelet Volume 10.5 fl (7.4-10.4); Platelet Count Result 230 k/mm3 (150-375); Red Blood Count 4.15 M/mm3 (4.6-6.20); Red Cell Distribution Width 14.6 % (11.5-14.5); White Blood Count 6.5 K/mm3 (4.5-10.0)
[2024-08-23 09:56] LABS: Add Urine Microscopic? YES; Appearance Urine Clear (Clear); Bilirubin Urine Negative (Negative); Blood Urine Negative (Negative); Color Urine Dark Yellow (Yellow); Glucose Urine UA Negative (Negative); Ketones Urine Trace mg/dL (Negative); Leukocyte Esterase Ur Negative LEU/UL (Negative); Nitrate Urine Negative (Negative); Protein Urine Negative (Negative); Specific Grav Ur 1.026 (1.001-1.035); Urobilinogen Urine 0.2 mg/dL (<2.0); pH Urine 5.5 (5.0-9.0)
[2024-08-23 10:00] LABS: Alanine Aminotransferase 16 U/L (6-50); Albumin Level 4.2 g/dL (3.5-5.1); Alkaline Phosphatase 89 U/L (38-126); Anion Gap 7 mmol/L (4-12); Aspartate Amino Transferase 27 U/L (17-59); Bilirubin,Total 0.9 mg/dL (0.2-1.3); Blood Urea Nitrogen 22 mg/dL (9-20); Calcium 8.8 mg/dL (8.4-10.2); Carbon Dioxide 29 mmol/L (22-30); Chloride 104 mmol/L (98-107); Cholesterol 130 mg/dL (0-200); Estimated Glomerular Filt Rate 58; Glucose 103 mg/dL (65-110); HDL Direct 68 mg/dL; Potassium 4.5 mmol/L (3.4-5.0); Sodium 140 mmol/L (137-145); Triglycerides 62 mg/dL (<150)
[2024-08-23 10:10] LABS: Hemoglobin A1C 5.5 % (<5.7)
[2024-08-23 10:12] LABS: LDL Cholesterol Direct 39 mg/dL
[2024-08-23 11:31] LABS: Prostate Specific Antigen 0.8 ng/mL (< OR = 4.0)
== END 2024-08-23 08:51 | disposition home or self-care (01) ==
PROVIDERS: PCP Family Medicine; Visit Provider Family Medicine
DX: R35.1 Nocturia (principal); I11.9 Hypertensive heart disease without heart failure; I25.10 Atherosclerotic heart disease of native coronary artery without angina pectoris; E78.00 Pure hypercholesterolemia, unspecified; R73.01 Impaired fasting glucose; Z12.5 Encounter for screening for malignant neoplasm of prostate
CPT/HCPCS: 36415; 80053; 80061; 81001; 83036; 84153; 84443; 85027

== ENCOUNTER 2024-12-29 11:22 | Outpatient (CLI) | payer MEDICARE, SELFPAY ==
--- OUTSIDE RECORDS SUMMARY | 2024-12-29 11:30 | XMS_ITS | Encounter Summary ---
Author Organization [facility] Healthcare Address [address] [place] [address] Care Team Providers Care Apns Name Role Phone Caleb Batres MD Primary Care Provider Teto Sutton MD Unavailable Foreign Rangel MD Unavailable [phone] Reason for Visit * Reason Comments Atrial Fibrillation Coronary Artery Disease Hyperlipidemia 6 mo f/u Encounter Details Date Type Department Care Team (Late st Contact Info) Description 12/29/2024 10:15 AM CDT Office Visit [facility] Cardiology [address] [facility] [address] [place] [address] Foreign Rangel MD [address] [facility] C [address] [facility] C, [address] [place] [address] Social History Tobacco Use Types Packs/Day Years Used Date Smoking Tobacco: Never Smokeless Tobacco: Never Alcohol Use Standard Drinks/Week Comments Yes 8 (1 standard drink = 0.6 oz pur e alcohol) [facility] Utilities Answer Date Recorded In the past 12 months has e electric, gas, oil, or water company [...] often do you attend chur ch or sikh services? 1 to 4 times per year 01/29/2024 Do you belong to any clubs o r organizations such as judaism groups, unions, fraternal or athletic groups, or [...] time in the past 12 m [facility], were you homeless or living in a correction (including now)? No 01/29/2024 Personal Safety Answer Date Recorded Have you ever been in or are you currently in a harmful physical or emotional relationship or is someone making you feel afraid or unsafe? Denies 01/22/2024 Sex and Gender Information Value Date Recorded Sex Assigned at Not on file Legal Sex Male 11:30 AM ORDNANCE HANDLER Gender Identity Male 11/08/2019 7:03 AM CDT Sexual Orientation Straight 11/08/2019 7: 03 AM CDT documented as of this encounter Last Filed Vital Signs Vital Sign Reading Time Taken Comments Blood Pressure 110/64 12/29/2024 10:35 AM CDT Pulse 64 12/29/2024 10:35 AM CDT Temperature - - Respiratory Rate - - Oxygen Saturation 97% 12/29/2024 10:35 AM CDT Inhaled Oxygen Concentration - - Weight 76.2 kg (168 lb) 12/29/2024 10:35 AM CDT Height 172.7 cm (5' 8) 12/29/2024 10:35 AM CDT Body Mass Index 25.54 12/29/2024 10:35 AM CDT documented in this encounter Plan of Treatment Not on file documented as of this encounter Visit Diagnoses Not on filedocumented in this encounter Care Teams Apns Relationship Specialty Start Date End Date Caleb Batres MD [address] [address] PCP - General 09/12/16 Teto Sutton MD [address] [address] Surgeon Cardiothoracic Surgery 02/01/24 Foreign Rangel MD [address] [facility] C C[address] [facility] C, [address] [place] [address] Consulting Physician Cardiology 02/01/24 documented as of this encounter
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
--- OUTSIDE RECORDS SUMMARY | 2024-12-29 11:30 | XMS_ITS | Clinical Summary ---
Author Organization [facility] Address [facility] [place] [address] Care Team Providers Care Engraved Roller Inspector Name Role Phone Caleb Batres MD Primary Care Provider [phone] Allergies Active Allergy Reactions Criticality Noted Date [...] CDT Gender Identity Male 08/14/2021 8:36 AM ON SITE SERVICES SPECIALIST Sexual Orientation Straight 08/14/2021 8: 36 AM ON SITE SERVICES SPECIALIST Last Filed Vital Signs Vital Sign Reading Time Taken Comments Blood Pressure 103/65 08/19/2021 10:37 AM ON SITE SERVICES SPECIALIST Pulse 75 08/19/2021 8:43 AM ON SITE SERVICES SPECIALIST Temperature 35.9 C (96.7 F) 08/19/2021 8:43 AM ON SITE SERVICES SPECIALIST Respiratory Rate 16 08/19/2021 8:43 AM ON SITE SERVICES SPECIALIST Oxygen Saturation 97% 08/19/2021 10:37 AM ON SITE SERVICES SPECIALIST Inhaled Oxygen Concentration - - Weight 81.6 kg (180 lb) 08/09/2021 3:05 PM ON SITE SERVICES SPECIALIST Height 172.7 cm (5' 8) 08/09/2021 3:05 PM ON SITE SERVICES SPECIALIST Body Mass Index 27.37 08/09/2021 3:05 PM ON SITE SERVICES SPECIALIST Plan of Treatment Health Maintenance Due Date Last Done Comments Hepatitis C 1966 DTaP, Tdap and Td Vaccines ( 1 - Tdap) 11/23/1967 Zoster Vaccines (1 of 2) 1998 Annual Medicare Wellness Visit 2013 RSV Immunization or 60+ Years (1 - 1-dose 75+ series) 11/23/2023 COVID-19 Vaccine ( - 2023-2 5 season) 2024 04/11/2021, 09/04/2020, 07/25/2020 Pneumococcal Vaccine: 50+ Years Completed 04/30/2021, 04/24/2020 Meningococcal B Vaccine Aged Out No l onger eligible based on patient's age to complete this topic Meningococcal Vaccine Aged Out No reina fabrice eligible based on patient's age to complete this topic RSV Immunizations Under 20 Months Aged Out No longer eligible b ased on patient's age to complete this topic Medical Devices Implanted Type Area Reservoir Caretaker Device Identifier Shelf Expiration Date Model / Serial / Lot Intraocular Lens Implanted:Qty: 1 on 08/19/2021 by Jose Miller MD at [facility] Left: Eye 05/08/2024 [facility] / [id number] / [facility] Care Teams Engraved Roller Inspector Relationship Specialty Start Date End Date Caleb Batres MD [address] [place] [address] PCP - General FAMILY PRACTICE 08/19/21
--- OUTSIDE RECORDS SUMMARY | 2024-12-29 11:30 | XMS_ITS | Referral Summary ---
Author Organization [address] Address [address] [facility] [address] [place] [address] Care Team Providers Care Parts Sales Associate Name Role Phone Caleb Batres MD Primary Care Provider Teto Sutton MD Unavailable [phone] Foreign Rangel MD Unavailable [phone] Encounters Date Type Department Care Team Description 12/29/2024 10:15 AM CDT Office Visit [facility] Cardiology [address] [place] [address] [address] [place] [address] Foreign Rangel MD 10/12/2024 Telephone [facility] Cardiology [address] [place] [address] [address] [place] [address] Foreign Rangel MD from Last 3 Months Allergies Active Allergy [...] 80 mg tabletIndicatio ns:Coronary artery disease of [place] artery of [place] heart with stable angina pectoris,Hyperl ipidemia LDL [...] artery disease of n ative artery of [place] heart with stable angina pectoris 03/05/2017 Hyperlipidemia [...] drink = 0.6 oz pur e alcohol) [facility] Utilities Answer Date Recorded In the past [...] often do you attend chur ch or restorationist services? 1 to 4 times per year 01/29/2024 Do you belong to any clubs o r organizations such as voodoo groups, unions, fraternal or athletic groups, or [...] any time in the past 12 m [facility], were you homeless or living in a nursing home (including now)? No 01/29/2024 Personal Safety Answer Date Recorded Have you ever been in or are you currently in a harmful physical or emotional relationship or is someone making you feel afraid or unsafe? Denies 01/22/2024 Sex and Gender Information Value Date Recorded Sex Assigned at Not on file Legal Sex Male 11:30 AM WORKERS' COMPENSATION CLAIMS SUPERVISOR Gender Identity Male 11/08/2019 7:03 AM CDT Sexual Orientation Straight 11/08/2019 7: 03 AM CDT Last Filed Vital Signs Vital Sign Reading Time Taken Comments Blood Pressure 110/64 12/29/2024 10:35 AM CDT Pulse 64 12/29/2024 10:35 AM CDT Temperature 36.4 C (97.6 F) 02/01/2024 12:31 PM CDT Respiratory Rate 16 07/12/2024 2:28 PM WORKERS' COMPENSATION CLAIMS SUPERVISOR Oxygen Saturation 97% 12/29/2024 10:35 AM CDT Inhaled Oxygen Concentration - - Weight 76.2 kg (168 lb) 12/29/2024 10:35 AM CDT Height 172.7 cm (5' 8) 12/29/2024 10:35 AM CDT Body Mass Index 25.54 12/29/2024 10:35 AM CDT Plan of Treatment Not on file Medical Devices Implanted Type Area Hoisting Engine Operator Device Identifier Shelf Expiration Date Model / Serial / Lot Atricure Device Closure Atriclip Nitinol Titanium Polyester 45 D L45mm L6cm Flexible Shaft Plunger Admissions Manager Rn Left Atrial Appendage Exclusion System [id number] - [id number] Implanted:Qty: 1 on 01/22/2024 by Teto Sutton MD at [facility] N/A: Heart Atricure 06/15/2026 [id number] / / [id number] Insurance [facility] MEDICARE ADVANTAGE UHC MEDICARE ADVANTAGE [facility] MEDICARE ADVANTAGE [facility] MEDICARE ADVANTAGE Advance Directives For more information, please contact: [phone] * Full Code (Latest Code Status on File) Date Activated Date Inactivated Comments 01/22/2024 3:49 PM 02/01/2024 6:44 PM Care Teams Parts Sales Associate Relationship Specialty Start Date End Date Caleb Batres MD [address] [place] [address] PCP - General 09/12/16 Teto Sutton MD [address] [place] [address] Surgeon Cardiothoracic Surgery 02/01/24 Foreign Rangel MD [address] [facility] [address], [address] [place] [address] Consulting Physician Cardiology 02/01/24
--- OUTSIDE RECORDS SUMMARY | 2024-12-29 11:30 | XMS_ITS | Clinical Summary ---
Author Organization [facility] Address [address] [place] [address] Phone Care Team Providers Care Hoist Mechanic Name Role Phone Caleb Batrse MD Primary Care Provider Allergies No known [...] Virus (HCV) Screening 1950 TdaP Immunization 1950 Zoster Immunization (1 of 2) 1998 Respiratory Syncytial Virus (RSV) Immunization (Adult) (1 - 1-dose 75+ series) 11/23/2023 SARS-COV-2 Immunization ( season) 2024 03/17/2023, 04/23/2022, 04/11/2021, Additional history exists Influenza Immunization (#1) 02/13/202508/2022, 03/24/2022, 04/30/2021, Additional history exists Pneumococcal Immunization (50+ years) Completed 04/30/2021, 04/24/2020 Hepatitis B Immunization Aged Out No longer eligible based on patient's age to complete this topic Human Papillomavirus (HPV) Immunization Aged Out No longer eligible based on patient's age to complete this topic Meningococcal Immunization (ACWY) Aged Out No longer eligible based on patient's age to complete this topic Rotavirus Immunization Aged Out No lo nger eligible based on patient's age to complete this topic Insurance MEDICARE C [facility] Advance Directives * Full Code (Latest Code Status on File) Date Activated Date Inactivated Comments 02/03/2024 8:44 AM Care Teams Hoist Mechanic Relationship Specialty Start Date End Date Caleb Batres MD [address] [place] [address] PCP - General Family Medicine 01/30/24
--- OUTSIDE RECORDS SUMMARY | 2024-12-29 11:30 | XMS_ITS | Encounter Summary ---
Author Organization [facility] Address [address] [place] [address] Phone Care Team Providers Care Tool And Equipment Rental Clerk Name Role Phone Caleb Batres MD Primary Care Provider Encounter Details Date Type Department Care Team (Latest Contact Info) Description 02/06/2024 Lab Requisition [facility] Laboratory Services [address] [place] [address] Brianda Johansen, MANAGER STORAGE, TALENT DEVELOPMENT SPECIALIST [address] [place], [place] [id number] Atherosclerotic heart disease of [place] coronary artery with other forms of angina [...] 9:30 AM CDT Atherosclerotic heart disease of [place] coronary artery with other forms of angina pectoris (HCC) CMP (COMPREHENSIVE METABOLIC PANEL) Routine 02/06/2024 9:30 AM CDT Atherosclerotic heart disease of [place] coronary artery with other forms of angina pectoris (HCC) COMPLETE BLOOD COUNT (CBC) WITH DIFF Routine 02/06/2024 9:30 AM CDT Atherosclerotic heart disease of [place] coronary artery with other forms of angina pectoris (HCC) documented in this encounter Results * (ABNORMAL) CBC WITH AUTO DIFFERENTIAL (02/06/2024 9:30 AM CDT) WBC 12.30(H) 4.00 - 12.00 10(3)/mcL 02/06/2024 10:24 AM CDT [facility] RBC 3.10(L) 4.40 - 5.80 10(6)/mcL 02/06/2024 10:24 AM CDT [facility] HEMOGLOBIN (HGB) 9.3(L) 13.0 - 16.5 g/dL 02/06/2024 10:24 AM CDT [facility] HEMATOCRIT (HCT) 28.8(L) 38.0 - 50.0 % 02/06/2024 10:24 AM CDT [facility] MCV 92.9 82.0 - 96.0 fL 02/06/2024 10:24 AM CDT [facility] MCH 30.0 26.0 - 32.0 pg 02/06/2024 10:24 AM CDT [facility] MCHC 32.3 31.0 - 36.0 g/dL 02/06/2024 10:24 AM CDT [facility] PLATELET COUNT 538(H) 140 - 440 10(3)/mcL 02/06/2024 10:24 AM CDT [facility] RDW 13.1 11.8 - 15.5 % 02/06/2024 10:24 AM CDT [facility] MPV 9.8 8.0 - 12.6 fL 02/06/2024 10:24 AM CDT [facility] NEUTROPHILS 78.3(H) 40.0 - 68.0 % 02/06/2024 10:24 AM CDT [facility] LYMPHOCYTES 11.5(L) 19.0 - 49.0 % 02/06/2024 10:24 AM CDT [facility] MONOCYTES 8.9 3.0 - 13.0 % 02/06/2024 10:24 AM CDT [facility] EOSINOPHILS 0.7 0.0 - 8.0 % 02/06/2024 10:24 AM CDT [facility] BASOPHILS 0.6 0.0 - 1.0 % 02/06/2024 10:24 AM CDT [facility] ABSOLUTE NEUTROPHILS 9.65(H) 1.40 - 5.30 10(3)/mcL 02/06/2024 10:24 AM CDT [facility] ABSOLUTE LYMPHOCYTES 1.41 0.90 - 3.30 10(3)/mcL 02/06/2024 10:24 AM CDT [facility] ABSOLUTE MONOCYTES 1.09(H) 0.10 - 0.90 10(3)/[facility] 02/06/2024 10:24 AM CDT [facility] ABSOLUTE EOSINOPHIL 0.08 0.00 - 0.50 10(3)/mcL 02/06/2024 10:24 AM CDT [facility] ABSOLUTE BASOPHILS 0.07 0.00 - 0.10 10(3)/[facility] 02/06/2024 10:24 AM CDT [facility] NRBC PER 100 WBC 0 02/06/20 10:24 AM CDT [facility] Blood No Phlebotomy Charged / Unknown 02/06/2024 9:30 AM CDT 02/06/2024 10:20 AM CDT us Brianda Johansen MANAGER STORAGE, TALENT DEVELOPMENT SPECIALIST HEMATOLOGY ORDERABL ES Final Result [facility] [address] [place] [address] * (ABNORMAL) CMP (COMPREHENSIVE METABOLIC PANEL) (02/06/2024 9:30 AM CDT) SODIUM 140 136 - 145 mmol/L 02/06/2024 10:43 AM CDT [facility] POTASSIUM 4.2 3.5 - 5.1 mmol/L 02/06/2024 10:43 AM CDT [facility] CHLORIDE 100 98 - 107 mmol/L 02/06/2024 10:43 AM T [facility] CO2, VENOUS 28 22 - 30 mmol/L 02/06/2024 10:43 AM CDT [facility] ANION GAP 16.2 <18.0 mmol/L 02/06/2024 10:43 AM CDT [facility] GLUCOSE 160(H) 70 - 99 mg/dL 02/06/2024 10:43 AM CDT [facility] BUN 19 8 - 26 mg/dL 02/06/2024 10:43 AM [facility] CREATININE, BLOOD 1.36(H) 0.70 - 1.30 mg/dL 02/06/2024 10:43 AM CDT [facility] BUN/CREATININE RATIO 14 12 - 20 ratio 02/06/2024 10:43 AM CDT [facility] TOTAL PROTEIN 6.3 6.3 - 8.2 g/dL 02/06/2024 10:43 AM T [facility] ALBUMIN 3.4(L) 3.5 - 5.0 g/dL 02/06/2024 10:43 AM [facility] A/G RATIO 1.2 1.0 - 2.2 02/06/2024 10:43 AM CDT [facility] CALCIUM 8.7 8.7 - 10.5 mg/dL 02/06/2024 10:43 AM CDT [facility] T BILI 0.6 0.2 - 1.2 mg/dL 02/06/2024 10:43 AM CDT [facility] SGOT (AST) 26 5 - 34 U/L 02/06/2024 10:43 AM CDT [facility] SGPT (ALT) 43 0 - 55 U/L 02/06/2024 10:43 AM CDT [facility] ALKALINE PHOSPHATASE 94 40 - 150 U/L 02/06/2024 10:43 AM CDT [facility] GFR, ESTIMATED 54(L) >=60 02/06/2024 10:43 AM CDT [facility] Comment: Creatinine Clearance is the preferred criteria for selecting drug dose adjustments in renally impaired patients. The GFR is provided as additional pertinent clinical information. GFR is reported in mL/min/1.73 sq m. Calculation based on the Chronic Kidney Disease Epidemiology Collaboration (CKD- EPI) equation refit without adjustment for race. GFR, EST. >60 >=60 024 10:43 AM CDT [facility] GFR, EST. NONAFRICAN 51(L) >=60 02/06/2024 10:43 AM CDT [facility] Blood No Phlebotomy Charged / Unknown 02/06/2024 9:30 AM CDT 02/06/2024 10:20 AM CDT us Brianda Johansen MANAGER STORAGE, TALENT DEVELOPMENT SPECIALIST CHEMISTRY ORDERABLE S Final Result [facility] [address] [place] [address] documented in this encounter Visit Diagnoses Diagnosis Atherosclerotic heart disease of [place] coronary artery with other forms of angina pectoris (HCC) documented in this encounter Care Teams Tool And Equipment Rental Clerk Relationship Specialty Start Date End Date Caleb Batres MD [address] [place] [address] PCP - General Family Medicine 01/30/24 documented as of this encounter
[2024-12-29 13:07] LABS: Free T4 Free Thyroxine 1.14 ng/dL (0.78-2.19)
[2024-12-29 13:21] LABS: Thyroid Stimulating Hormone 0.438 uIU/mL (0.465-4.680)
== END 2024-12-29 11:23 | disposition home or self-care (01) ==
PROVIDERS: PCP Family Medicine; Visit Provider Internal Medicine Endocrinology, Diabetes & Metabolism
DX: E05.90 Thyrotoxicosis, unspecified without thyrotoxic crisis or storm (principal)
CPT/HCPCS: 36415; 84439; 84443; 84445

== ENCOUNTER 2025-02-27 08:53 | Outpatient (CLI) | payer MEDICARE, SELFPAY ==
--- OUTSIDE RECORDS SUMMARY | 2025-02-27 09:28 | XMS_ITS | Encounter Summary ---
Author Organization [facility] Address [address] [place] [address] Phone Care Team Providers Care Material Requirements Planning Manager Name Role Phone Caleb Batres MD Primary Care Provider Encounter Details Date Type Department Care Team (Latest Contact Info) Description 02/06/2024 Lab Requisition [facility] Laboratory Services [address] [place] [address] Brianda Johansen, LEAD RADIATION THERAPIST, MACHINE FILLER SHREDDER [address] [place], [place] [id number] Atherosclerotic heart disease of [place] coronary artery with other forms of angina [...] 9:30 AM CDT Atherosclerotic heart disease of [place] coronary artery with other forms of angina pectoris (HCC) CMP (COMPREHENSIVE METABOLIC PANEL) Routine 02/06/2024 9:30 AM CDT Atherosclerotic heart disease of [place] coronary artery with other forms of angina pectoris (HCC) COMPLETE BLOOD COUNT (CBC) WITH DIFF Routine 02/06/2024 9:30 AM CDT Atherosclerotic heart disease of [place] coronary artery with other forms of angina pectoris (HCC) documented in this encounter Results * (ABNORMAL) CBC WITH AUTO DIFFERENTIAL (02/06/2024 9:30 AM CDT) WBC 12.30(H) 4.00 - 12.00 10(3)/mcL 02/06/2024 10:24 AM CDT [facility] RBC 3.10(L) 4.40 - 5.80 10(6)/mcL 02/06/2024 10:24 AM CDT [facility] HEMOGLOBIN (HGB) 9.3(L) 13.0 - 16.5 g/dL 02/06/2024 10:24 AM CDT [facility] HEMATOCRIT (HCT) 28.8(L) 38.0 - 50.0 % 02/06/2024 10:24 AM CDT [facility] MCV 92.9 82.0 - 96.0 fL 02/06/2024 10:24 AM CDT [facility] MCH 30.0 26.0 - 32.0 pg 02/06/2024 10:24 AM CDT [facility] MCHC 32.3 31.0 - 36.0 g/dL 02/06/2024 10:24 AM CDT [facility] PLATELET COUNT 538(H) 140 - 440 10(3)/mcL 02/06/2024 10:24 AM CDT [facility] RDW 13.1 11.8 - 15.5 % 02/06/2024 10:24 AM CDT [facility] MPV 9.8 8.0 - 12.6 fL 02/06/2024 10:24 AM CDT [facility] NEUTROPHILS 78.3(H) 40.0 - 68.0 % 02/06/2024 10:24 AM CDT [facility] LYMPHOCYTES 11.5(L) 19.0 - 49.0 % 02/06/2024 10:24 AM CDT [facility] MONOCYTES 8.9 3.0 - 13.0 % 02/06/2024 10:24 AM CDT [facility] EOSINOPHILS 0.7 0.0 - 8.0 % 02/06/2024 10:24 AM CDT [facility] BASOPHILS 0.6 0.0 - 1.0 % 02/06/2024 10:24 AM CDT [facility] ABSOLUTE NEUTROPHILS 9.65(H) 1.40 - 5.30 10(3)/mcL 02/06/2024 10:24 AM CDT [facility] ABSOLUTE LYMPHOCYTES 1.41 0.90 - 3.30 10(3)/mcL 02/06/2024 10:24 AM CDT [facility] ABSOLUTE MONOCYTES 1.09(H) 0.10 - 0.90 10(3)/[facility] 02/06/2024 10:24 AM CDT [facility] ABSOLUTE EOSINOPHIL 0.08 0.00 - 0.50 10(3)/mcL 02/06/2024 10:24 AM CDT [facility] ABSOLUTE BASOPHILS 0.07 0.00 - 0.10 10(3)/[facility] 02/06/2024 10:24 AM CDT [facility] NRBC PER 100 WBC 0 02/06/20 10:24 AM CDT [facility] Blood No Phlebotomy Charged / Unknown 02/06/2024 9:30 AM CDT 02/06/2024 10:20 AM CDT us Brianda Johansen LEAD RADIATION THERAPIST, MACHINE FILLER SHREDDER HEMATOLOGY ORDERABL ES Final Result [facility] #[address] [place] [address] * (ABNORMAL) CMP (COMPREHENSIVE METABOLIC PANEL) (02/06/2024 9:30 AM CDT) SODIUM 140 136 - 145 mmol/L 02/06/2024 10:43 AM CDT [facility] POTASSIUM 4.2 3.5 - 5.1 mmol/L 02/06/2024 10:43 AM CDT [facility] CHLORIDE 100 98 - 107 mmol/L 02/06/2024 10:43 AM T [facility] CO2, VENOUS 28 22 - 30 mmol/L 02/06/2024 10:43 AM CDT [facility] ANION GAP 16.2 <18.0 mmol/L 02/06/2024 10:43 AM CDT [facility] GLUCOSE 160(H) 70 - 99 mg/dL 02/06/2024 10:43 AM CDT [facility] BUN 19 8 - 26 mg/dL 02/06/2024 10:43 AM [facility] CREATININE, BLOOD 1.36(H) 0.70 - 1.30 mg/dL 02/06/2024 10:43 AM CDT [facility] BUN/CREATININE RATIO 14 12 - 20 ratio 02/06/2024 10:43 AM CDT [facility] TOTAL PROTEIN 6.3 6.3 - 8.2 g/dL 02/06/2024 10:43 AM T [facility] ALBUMIN 3.4(L) 3.5 - 5.0 g/dL 02/06/2024 10:43 AM [facility] A/G RATIO 1.2 1.0 - 2.2 02/06/2024 10:43 AM CDT [facility] CALCIUM 8.7 8.7 - 10.5 mg/dL 02/06/2024 10:43 AM CDT [facility] T BILI 0.6 0.2 - 1.2 mg/dL 02/06/2024 10:43 AM CDT [facility] SGOT (AST) 26 5 - 34 U/L 02/06/2024 10:43 AM CDT [facility] SGPT (ALT) 43 0 - 55 U/L 02/06/2024 10:43 AM CDT [facility] ALKALINE PHOSPHATASE 94 40 - 150 U/L 02/06/2024 10:43 AM CDT [facility] GFR, ESTIMATED 54(L) >=60 02/06/2024 10:43 AM CDT [facility] Comment: Creatinine Clearance is the preferred criteria for selecting drug dose adjustments in renally impaired patients. The GFR is provided as additional pertinent clinical information. GFR is reported in mL/min/1.73 sq m. Calculation based on the Chronic Kidney Disease Epidemiology Collaboration (CKD- EPI) equation refit without adjustment for race. GFR, EST. >60 >=60 024 10:43 AM CDT [facility] GFR, EST. NONAFRICAN 51(L) >=60 02/06/2024 10:43 AM CDT [facility] Blood No Phlebotomy Charged / Unknown 02/06/2024 9:30 AM CDT 02/06/2024 10:20 AM CDT us Brianda Johansen LEAD RADIATION THERAPIST, MACHINE FILLER SHREDDER CHEMISTRY ORDERABLE S Final Result [facility] [address] [place] [address] documented in this encounter Visit Diagnoses Diagnosis Atherosclerotic heart disease of [place] coronary artery with other forms of angina pectoris (HCC) documented in this encounter Care Teams Material Requirements Planning Manager Relationship Specialty Start Date End Date Caleb Batres MD [address] [place] [address] PCP - General Family Medicine 01/30/24 documented as of this encounter
--- OUTSIDE RECORDS SUMMARY | 2025-02-27 09:28 | XMS_ITS | Clinical Summary ---
Author Organization [facility] [address] Address [address] [place] [address] Care Team Providers Care Batch Still Operator Name Role Phone Caleb Batres MD Primary Care Provider Teto Sutton MD Unavailable [phone] Foreign Rangel MD Unavailable [phone] Allergies Active Allergy Reactions Criticality Noted Date Comments Shellfish Derived Rash Medium 08/09/2021 Shrimp Rash Medium 1998 Medications multivitamin tablet tablet take 1 tablet by oral route every day with food 0 0 10/20/[address] (NexIUM) 20 mg capsule Take 1 capsule (20 mg total) by mouth daily before breakfast Active methIMAzole (TAPAZOLE) 5 mg tablet 11/01/19 22 Active nitroglycerin (NITROSTAT) 0.[address] 1 tablet (0.4 mg total) under the tongue every 5 (five) minutes as needed for chest pain (May repeat every 5min up to 3 tabs in 15 min.) May repeat dose q 5 min, up to 3 doses total 25 tablet 11 03/31/20 24 025 Active clopidogreL (PLAVIX) 75 mg tablet TAKE 1 TABLET BY MOUTH DAILY 100 tablet 2 08/01/19 25 Active Xarelto 20 mg tablet TAKE 1 TABLET BY MOUTH DAILY 100 tablet 2 10/01/19 25 Active metoprolol tartrate (LOPRESSOR) 25 mg immediate release tablet TAKE ONE-HALF TABLET BY MOUTH TWICE DAILY 100 tablet 3 01/21/20 25 Active atorvastatin (LIPITOR) 80 mg tabletIndicati ons:Coronary artery disease of [place] artery of [place] heart with stable angina pectoris,Hyper lipidemia LDL goal <70 TAKE 1 TABLET BY MOUTH ONCE DAILY 100 tablet 2 02/21/20 25 Active ezetimibe (ZETIA) 10 mg tablet TAKE 1 TABLET BY MOUTH DAILY 100 tablet 2 02/21/20 25 Active atorvastatin (LIPITOR) 80 mg tabletIndicati ons:Coronary artery disease of [place] artery of [place] heart with stable angina pectoris,Hyper lipidemia LDL goal <70 TAKE 1 TABLET BY MOUTH ONCE DAILY 100 tablet 2 01/04/20 24 025 Discontinued ezetimibe (ZETIA) 10 mg tablet TAKE 1 TABLET BY MOUTH DAILY 100 tablet 3 03/21/20 24 025 Discontinued Active Problems Problem Noted Date Diagnosed Date Coronary artery disease (CAD) excluded 4 Coronary artery disease of n ative heart with stable angina pectoris 12/08/2023 Chronic anticoagulation 03/01/2020 Paroxysmal atrial fibrillation 03/01/2020 Coronary artery disease of n ative artery of [place] tribe heart with stable angina pectoris 03/05/2017 Hyperlipidemia [...] Description 12/29/2024 10:15 AM CDT Office Visit [facility] [address] [place] [address] Foreign Rangel MD Coronary artery disease of [place] tribe artery of [place] tribe heart with stable angina pectoris (Primary Dx); Paroxysmal atrial fibrillation (HCC); Hyperlipidemia LDL goal <70; Chronic anticoagulation from Last 3 Months Surgical History Surgery [...] drink = 0.6 oz pur e alcohol) [facility] Utilities Answer Date Recorded In the past 12 months has e electric, gas, oil, or water [employer] threatened to shut off services in your home? No 01/29/2024 Social Connection and Isolation Panel Answer Date Recorded In a typical week, how many times do you talk on the phone with family, friends, or neighbors? More than three times a week 01/29/2024 How often do you get togethe r with friends or relatives? More than three times a week 01/29/2024 How often do you attend chur ch or sikhism services? 1 to 4 times per year 01/29/2024 Do you belong to any clubs o r organizations such as pentecostalism groups, unions, fraternal or athletic groups, or [...] any time in the past 12 m [facility], were you homeless or living in a detention (including now)? No 01/29/2024 Personal Safety Answer Date Recorded Have you ever been in or are you currently in a harmful physical or emotional relationship or is someone making you feel afraid or unsafe? Denies 01/22/2024 Sex and Gender Information Value Date Recorded Sex Assigned at Not on file Legal Sex Male 11:30 AM COUNTER INTELLIGENCE AGENT Gender Identity Male 11/08/2019 7:03 AM CDT Sexual Orientation Straight 11/08/2019 7: 03 AM CDT Obstetrics History Last Filed Vital Signs Vital Sign Reading Time Taken Comments Blood Pressure 110/64 12/29/2024 10:35 AM CDT Pulse 64 12/29/2024 10:35 AM CDT Temperature 36.4 C (97.6 F) 02/01/2024 12:31 PM CDT Respiratory Rate 16 07/12/2024 2:28 PM COUNTER INTELLIGENCE AGENT Oxygen Saturation 97% 12/29/2024 10:35 AM CDT [...] of 2) 1998 Well Visit 65+ 2013 Fall Risk Assessment 01/31/2025 02/01/2024 Covid-19 Vaccine (2023-2 5 season) 2025 03/30/2024, 03/17/2023, 04/23/2022, Additional history exists Influenza Vaccine (#1) 2025 , 03/17/2023, 03/24/2022, Additional history exists Pneumococcal vaccine 65+ Completed 04/30/2021, 04/15 Medical Devices Implanted Type Area Yacht Captain Device Identifier Shelf Expiration Date Model / Serial / Lot Atricure Device Closure Atriclip Nitinol Titanium Polyester 45 D L45mm L6cm Flexible Shaft Plunger Supervisory Air Intercept Controller Left Atrial Appendage Exclusion System [id number] - [id number] Implanted:Qty: 1 on 01/22/2024 by Teto Sutton MD at [facility] Clip N/A: Heart Atricure 06/15/2026 [id number] / / [id number] Insurance [facility] MEDICARE ADVANTAGE [facility] MEDICARE ADVANTAGE Advance Directives For more information, please contact: [phone] * Full Code (Latest Code Status on File) Date Activated Date Inactivated Comments 01/22/2024 3:49 PM 02/01/2024 6:44 PM Care Teams Batch Still Operator Relationship Specialty Start Date End Date Caleb Batres MD [address] [facility] [address] [place] [address] PCP - General 09/12/16 Teto Sutton MD [address] [facility] [address] [place] [address] Surgeon Cardiothoracic Surgery 02/01/24 Foreign Rangel MD [address] [place] [address] Consulting Physician Cardiology 02/01/24
--- OUTSIDE RECORDS SUMMARY | 2025-02-27 09:28 | XMS_ITS | Clinical Summary ---
Author Organization [facility] Address [address] [facility] [place] [address] Phone Care Team Providers Care Patient Transition Specialist Name Role Phone Caleb Batres MD Primary [...] 1-dose 75+ series) 11/23/2023 Influenza Immunization (#1) 02/13/202508/2022, 03/24/2022, 04/30/2021, Additional history exists SARS-COV-2 Immunization ( season) 2025 03/17/2023, 04/23/2022, 04/11/2021, Additional history exists Pneumococcal [...] to complete this topic Insurance MEDICARE C [facility] Advance Directives * Full Code (Latest Code Status on File) Date Activated Date Inactivated Comments 02/03/2024 8:44 AM Care Teams Patient Transition Specialist Relationship Specialty Start Date End Date Caleb Batres MD [address] [place] [address] PCP - General Family Medicine 01/30/24
[2025-02-27 09:58] LABS: Alanine Aminotransferase 16 U/L (6-50); Albumin Level 4.1 g/dL (3.5-5.1); Alkaline Phosphatase 94 U/L (38-126); Anion Gap 6 mmol/L (4-12); Aspartate Amino Transferase 31 U/L (17-59); Bilirubin,Total 0.6 mg/dL (0.2-1.3); Blood Urea Nitrogen 24 mg/dL (9-20); Calcium 8.8 mg/dL (8.4-10.2); Carbon Dioxide 28 mmol/L (22-30); Chloride 104 mmol/L (98-107); Estimated Glomerular Filt Rate 56; Glucose 101 mg/dL (65-110); Potassium 4.6 mmol/L (3.4-5.0); Sodium 138 mmol/L (137-145); Total Protein 7.3 g/dL (6.3-8.2)
== END 2025-02-27 08:54 | disposition home or self-care (01) ==
LOC: ANHLAB 08:54
PROVIDERS: PCP Family Medicine; Visit Provider Physician Assistant
DX: I11.9 Hypertensive heart disease without heart failure (principal); Z95.5 Presence of coronary angioplasty implant and graft; I25.10 Atherosclerotic heart disease of native coronary artery without angina pectoris; R73.01 Impaired fasting glucose
CPT/HCPCS: 36415; 80053

== ENCOUNTER 2025-04-26 08:59 | Outpatient (CLI) | payer MEDICARE, SELFPAY ==
--- OUTSIDE RECORDS SUMMARY | 2025-04-26 09:37 | XMS_ITS | Clinical Summary ---
Author Organization [facility] [address] Address [address] [place] [address] Care Team Providers Care Computer Forensics Examiner Name Role Phone Caleb Batres MD Primary Care Provider Teto Sutton MD Unavailable [phone] Foreign Rangel MD Unavailable [phone] Allergies Active Allergy Reactions Criticality Noted Date [...] doses total 25 tablet 11 03/31/20 24 Active Xarelto 20 mg tablet TAKE 1 TABLET BY MOUTH DAILY 100 tablet 2 10/01/19 25 Active metoprolol tartrate (LOPRESSOR) 25 mg immediate release tablet TAKE ONE-HALF TABLET BY MOUTH TWICE DAILY 100 tablet 3 01/21/20 25 Active atorvastatin (LIPITOR) 80 mg tabletIndicati ons:Coronary artery disease of [place] artery of [place] heart with stable angina pectoris,Hyper lipidemia LDL goal <70 TAKE 1 TABLET BY MOUTH ONCE DAILY 100 tablet 2 02/21/20 25 Active ezetimibe (ZETIA) 10 mg tablet TAKE 1 TABLET BY MOUTH DAILY 100 tablet 2 02/21/20 25 Active clopidogreL (PLAVIX) 75 mg tablet TAKE 1 TABLET BY MOUTH DAILY 100 tablet 2 04/04/20 25 Active clopidogreL (PLAVIX) 75 mg tablet TAKE 1 TABLET BY MOUTH DAILY 100 tablet 2 08/01/19 25 025 Discontinued Active Problems Problem Noted Date Diagnosed Date Coronary artery disease (CAD) excluded 4 Coronary artery disease of n ative heart with stable angina pectoris 12/08/2023 Chronic anticoagulation 03/01/2020 Paroxysmal atrial fibrillation 03/01/2020 Coronary artery disease of n [place]ive artery of [place] heart with stable angina pectoris 03/05/2017 Hyperlipidemia LDL goal <70 03/05/2017 Family history of ischemic heart disease 017 Gastroesophageal reflux disease without esophagi tis 03/05/2017 Chronic coronary artery disease 10/20/2014 Hyperlipidemia 10/20/2014 Status post angioplasty 10/20/2014 Abnormal result of cardiovascular function study 06/29/2014 Overview (09/19/2016): Abnormal results of cardiovascular function studies Palpitations 06/29/2014 Overview (09/19/2016): Palpitations Surgical History Surgery Date Site/Laterality Comments CARDIAC [...] drink = 0.6 oz pur e alcohol) [facility] Utilities Answer Date Recorded In the [...] often do you attend chur ch or lutheran services? 1 to 4 times per year 01/29/2024 Do you belong to any clubs o r organizations such as sikhism groups, unions, fraternal or athletic groups, or [...] any time in the past 12 m [facility], were you homeless or living in a chcf (including now)? No 01/29/2024 Personal Safety Answer Date Recorded Have you ever been in or are you currently in a harmful physical or emotional relationship or is someone making you feel afraid or unsafe? Denies 01/22/2024 Sex and Gender Information Value Date Recorded Sex Assigned at Not on file Legal Sex Male 11:30 AM CAR CONDITIONER Gender Identity Male 11/08/2019 7:03 AM CDT Sexual Orientation Straight 11/08/2019 7: 03 AM CDT Last Filed Vital Signs Vital Sign Reading Time Taken Comments Blood Pressure 110/64 12/29/2024 10:35 AM CDT Pulse 64 12/29/2024 10:35 AM CDT Temperature 36.4 C (97.6 F) 02/01/2024 12:31 PM CDT Respiratory Rate 16 07/12/2024 2:28 PM CAR CONDITIONER Oxygen Saturation 97% 12/29/2024 10:35 AM CDT [...] Fall Risk Assessment 01/31/2025 02/01/2024 Covid-19 Vaccine (2024-07 6 season) 2025 03/30/2024, 03/17/2023, 04/23/2022, Additional history exists Influenza Vaccine (#1) 2025 , 03/17/2023, 03/24/2022, Additional history exists Pneumococcal vaccine 65+ Completed 04/30/2021, 04/15 Medical Devices Implanted Type Area Sharepoint Manager Device Identifier Shelf Expiration Date Model / Serial / Lot Atricure Device Closure Atriclip Nitinol Titanium Polyester 45 D L45mm L6cm Flexible Shaft Plunger Warehouse Foreman Left Atrial Appendage Exclusion System [id number] - [id number] Implanted:Qty: 1 on 01/22/2024 by Teot Sutton MD at [facility] N/A: Heart Atricure 06/15/2026 [id number] / / [id number] Insurance [facility] MEDICARE ADVANTAGE [facility] MEDICARE ADVANTAGE [facility] MEDICARE ADVANTAGE [facility] MEDICARE ADVANTAGE Advance Directives For more information, please contact: [phone] * Full Code (Latest Code Status on File) Date Activated Date Inactivated Comments 01/22/2024 3:49 PM 02/01/2024 6:44 PM Care Teams Computer Forensics Examiner Relationship Specialty Start Date End Date Caleb Batres MD [address] [facility] [address] [place] [address] PCP - General 09/12/16 Teto Sutton MD [address] [facility] [address] [place] [address] Surgeon Cardiothoracic Surgery 02/01/24 Foreign Rangel MD [address] [facility] [address] Consulting Physician Cardiology 02/01/24
--- OUTSIDE RECORDS SUMMARY | 2025-04-26 09:37 | XMS_ITS | Clinical Summary ---
Author Organization [facility] Address [address] [facility] [place] [address] Phone Care Team Providers Care Internal Medicine Nurse Practitioner Name Role Phone Caleb Batres MD Primary [...] (Adult) (1 - 1-dose 75+ series) 11/23/2023 Medicare Initial AWV [id number] 06/15/2024 Influenza Immunization (#1) 02/13/202508/2022, 03/24/2022, 04/30/2021, Additional history exists SARS-COV-2 Immunization (2024- season) 2025 03/17/2023, 04/23/2022, 04/11/2021, Additional history [...] to complete this topic Insurance MEDICARE C [facility] Advance Directives * Full Code (Latest Code Status on File) Date Activated Date Inactivated Comments 02/03/2024 8:44 AM Care Teams Internal Medicine Nurse Practitioner Relationship Specialty Start Date End Date Caleb Batres MD [address] [place], [place] [id number] PCP - General Family Medicine 01/30/24
--- OUTSIDE RECORDS SUMMARY | 2025-04-26 09:37 | XMS_ITS | Encounter Summary ---
Author Organization [facility] Address [address] [place] [address] Phone Care Team Providers Care Assembler Dc Field Ring Name Role Phone Caleb Batres MD Primary Care Provider Encounter Details Date Type Department Care Team (Latest Contact Info) Description 02/06/2024 Lab Requisition [facility] [address] [place] [address] Brianda Johansen, MANAGER ELECTRICAL, DIVISION OPERATIONS MANAGER [address] [place] [address] Atherosclerotic heart disease of [place] coronary artery with other forms of angina [...] 9:30 AM CDT Atherosclerotic heart disease of [place] coronary artery with other forms of angina pectoris (HCC) CMP (COMPREHENSIVE METABOLIC PANEL) Routine 02/06/2024 9:30 AM CDT Atherosclerotic heart disease of [place] coronary artery with other forms of angina pectoris (HCC) COMPLETE BLOOD COUNT (CBC) WITH DIFF Routine 02/06/2024 9:30 AM CDT Atherosclerotic heart disease of [place] coronary artery with other forms of angina pectoris (HCC) documented in this encounter Results * (ABNORMAL) CBC WITH AUTO DIFFERENTIAL (02/06/2024 9:30 AM CDT) WBC 12.30(H) 4.00 - 12.00 10(3)/mcL 02/06/2024 10:24 AM CDT [facility] RBC 3.10(L) 4.40 - 5.80 10(6)/mcL 02/06/2024 10:24 AM CDT [facility] HEMOGLOBIN (HGB) 9.3(L) 13.0 - 16.5 g/dL 02/06/2024 10:24 AM CDT [facility] HEMATOCRIT (HCT) 28.8(L) 38.0 - 50.0 % 02/06/2024 10:24 AM CDT [facility] MCV 92.9 82.0 - 96.0 fL 02/06/2024 10:24 AM CDT [facility] MCH 30.0 26.0 - 32.0 pg 02/06/2024 10:24 AM CDT [facility] MCHC 32.3 31.0 - 36.0 g/dL 02/06/2024 10:24 AM CDT [facility] PLATELET COUNT 538(H) 140 - 440 10(3)/mcL 02/06/2024 10:24 AM CDT [facility] RDW 13.1 11.8 - 15.5 % 02/06/2024 10:24 AM CDT [facility] MPV 9.8 8.0 - 12.6 fL 02/06/2024 10:24 AM CDT [facility] NEUTROPHILS 78.3(H) 40.0 - 68.0 % 02/06/2024 10:24 AM CDT [facility] LYMPHOCYTES 11.5(L) 19.0 - 49.0 % 02/06/2024 10:24 AM CDT [facility] MONOCYTES 8.9 3.0 - 13.0 % 02/06/2024 10:24 AM CDT [facility] EOSINOPHILS 0.7 0.0 - 8.0 % 02/06/2024 10:24 AM CDT [facility] BASOPHILS 0.6 0.0 - 1.0 % 02/06/2024 10:24 AM CDT [facility] ABSOLUTE NEUTROPHILS 9.65(H) 1.40 - 5.30 10(3)/mcL 02/06/2024 10:24 AM CDT [facility] ABSOLUTE LYMPHOCYTES 1.41 0.90 - 3.30 10(3)/mcL 02/06/2024 10:24 AM CDT [facility] ABSOLUTE MONOCYTES 1.09(H) 0.10 - 0.90 10(3)/[facility] 02/06/2024 10:24 AM CDT [facility] ABSOLUTE EOSINOPHIL 0.08 0.00 - 0.50 10(3)/mcL 02/06/2024 10:24 AM CDT [facility] ABSOLUTE BASOPHILS 0.07 0.00 - 0.10 10(3)/[facility] 02/06/2024 10:24 AM CDT [facility] NRBC PER 100 WBC 0 02/06/20 10:24 AM CDT [facility] Blood No Phlebotomy Charged / Unknown 02/06/2024 9:30 AM CDT 02/06/2024 10:20 AM CDT us Brianda Johansen MANAGER ELECTRICAL, DIVISION OPERATIONS MANAGER HEMATOLOGY ORDERABL ES Final Result [facility] [address] [place] [address] * (ABNORMAL) CMP (COMPREHENSIVE METABOLIC PANEL) (02/06/2024 9:30 AM CDT) SODIUM 140 136 - 145 mmol/L 02/06/2024 10:43 AM CDT [facility] POTASSIUM 4.2 3.5 - 5.1 mmol/L 02/06/2024 10:43 AM T [facility] CHLORIDE 100 98 - 107 mmol/L 02/06/2024 10:43 AM T [facility] CO2, VENOUS 28 22 - 30 mmol/L 02/06/2024 10:43 AM CDT [facility] ANION GAP 16.2 <18.0 mmol/L 02/06/2024 10:43 AM CDT [facility] GLUCOSE 160(H) 70 - 99 mg/dL 02/06/2024 10:43 AM T [facility] BUN 19 8 - 26 mg/dL 02/06/2024 10:43 AM [facility] CREATININE, BLOOD 1.36(H) 0.70 - 1.30 mg/dL 02/06/2024 10:43 AM [facility] BUN/CREATININE RATIO 14 12 - 20 ratio 02/06/2024 10:43 AM CDT [facility] TOTAL PROTEIN 6.3 6.3 - 8.2 g/dL 02/06/2024 10:43 AM [facility] ALBUMIN 3.4(L) 3.5 - 5.0 g/dL 02/06/2024 10:43 AM [facility] A/G RATIO 1.2 1.0 - 2.2 02/06/2024 10:43 AM CDT [facility] CALCIUM 8.7 8.7 - 10.5 mg/dL 02/06/2024 10:43 AM [facility] T BILI 0.6 0.2 - 1.2 mg/dL 02/06/2024 10:43 AM CDT [facility] SGOT (AST) 26 5 - 34 U/L 02/06/2024 10:43 AM CDT [facility] SGPT (ALT) 43 0 - 55 U/L 02/06/2024 10:43 AM CDT [facility] ALKALINE PHOSPHATASE 94 40 - 150 U/L 02/06/2024 10:43 AM CDT [facility] GFR, ESTIMATED 54(L) >=60 02/06/2024 10:43 AM CDT [facility] Comment: Creatinine Clearance is the preferred criteria for selecting drug dose adjustments in renally impaired patients. The GFR is provided as additional pertinent clinical information. GFR is reported in mL/min/1.73 sq m. Calculation based on the Chronic Kidney Disease Epidemiology Collaboration (CKD- EPI) equation refit without adjustment for race. GFR, EST. >60 >=60 024 10:43 AM CDT [facility] GFR, EST. NONAFRICAN 51(L) >=60 02/06/2024 10:43 AM CDT [facility] Blood No Phlebotomy Charged / Unknown 02/06/2024 9:30 AM CDT 02/06/2024 10:20 AM CDT us Brianda Johansen MANAGER ELECTRICAL, DIVISION OPERATIONS MANAGER CHEMISTRY ORDERABLE S Final Result [facility] [address] [place] [address] documented in this encounter Visit Diagnoses Diagnosis Atherosclerotic heart disease of [place] coronary artery with other forms of angina pectoris documented in this encounter Care Teams Assembler Dc Field Ring Relationship Specialty Start Date End Date Caleb Batres MD [address] [place] [address] PCP - General Family Medicine 01/30/24 documented as of this encounter
--- OUTSIDE RECORDS SUMMARY | 2025-04-26 09:38 | XMS_ITS | Clinical Summary ---
Author Organization [facility] Address [facility] [place] [address] Care Team Providers Care Head Housekeeper Name Role Phone Caleb Batres MD Primary Care Provider [phone] Allergies Active Allergy Reactions Criticality Noted Date Comments Shellfish Protein-Containing Drug Products Rash Medi um 08/09/2021 Medications clopidogrel 75 MG tablet Take 75 [...] CDT Gender Identity Male 08/14/2021 8:36 AM WOOL PRESSER Sexual Orientation Straight 08/14/2021 8: 36 AM WOOL PRESSER Last Filed Vital Signs Vital Sign Reading Time Taken Comments Blood Pressure 103/65 08/19/2021 10:37 AM WOOL PRESSER Pulse 75 08/19/2021 8:43 AM WOOL PRESSER Temperature 35.9 C (96.7 F) 08/19/2021 8:43 AM WOOL PRESSER Respiratory Rate 16 08/19/2021 8:43 AM WOOL PRESSER Oxygen Saturation 97% 08/19/2021 10:37 AM WOOL PRESSER Inhaled Oxygen Concentration - - Weight 81.6 kg (180 lb) 08/09/2021 3:05 PM WOOL PRESSER Height 172.7 cm (5' 8) 08/09/2021 3:05 PM WOOL PRESSER Body Mass Index 27.37 08/09/2021 3:05 PM WOOL PRESSER Plan of Treatment Health Maintenance Due Date Last Done Comments Hepatitis C 1966 DTaP, Tdap and Td Vaccines ( 1 - Tdap) 11/23/1967 Zoster Vaccines (1 of 2) 1998 Annual Medicare Wellness Visit 2013 RSV Immunization or 60+ Years (1 - 1-dose 75+ series) 11/23/2023 COVID-19 Vaccine ( - 2024-2 6 season) 2025 04/11/2021, 09/04/2020, 07/25/2020 Influenza Adult (#1) 2025 04/10/2020, 03/29/2019 Pneumococcal Vaccine: 50+ Years Completed 04/30/2021, 04/24/2020 Hepatitis A Vaccines Aged Out No long er eligible based on patient's age to complete this topic Meningococcal B Vaccine Aged Out No l onger eligible based on patient's age to complete this topic Meningococcal Vaccine Aged Out No reina fabrice eligible based on patient's age to complete this topic RSV Immunizations Under 20 Months Aged Out No longer eligible b ased on patient's age to complete this topic Medical Devices Implanted Type Area Pourer Metal Device Identifier Shelf Expiration Date Model / Serial / Lot Intraocular Lens Implanted:Qty: 1 on 08/19/2021 by Jose Romero MD at [facility] Left: Eye 05/08/2024 [id number] / [id number] / Insurance [facility] MEDICARE Care Teams Head Housekeeper Relationship Specialty Start Date End Date Caleb Batres MD [address] [place] [address] PCP - General FAMILY PRACTICE 08/19/21
[2025-04-26 10:21] LABS: Free T4 Free Thyroxine 0.97 ng/dL (0.78-2.19)
[2025-04-26 10:35] LABS: Thyroid Stimulating Hormone 0.982 uIU/mL (0.465-4.680)
== END 2025-04-26 09:00 | disposition home or self-care (01) ==
PROVIDERS: PCP Family Medicine; Visit Provider Internal Medicine Endocrinology, Diabetes & Metabolism
DX: E05.90 Thyrotoxicosis, unspecified without thyrotoxic crisis or storm (principal)
CPT/HCPCS: 36415; 84439; 84443